=== PATIENT | female | born 1990 | race Caucasian/White ===

== ENCOUNTER 2022-11-12 10:13 | Outpatient (REF) | payer OTHER, SELFPAY ==
--- NOTE | ~2022-11-12 | XR_ITS ---
EXAMINATION: XR LUMBOSACRAL SPINE CLINICAL INFORMATION: Reason for Exam M54.50 - Low back pain, unspecified COMPARISON: None TECHNIQUE: 3 views of the lumbar spine FINDINGS: 5 nonrib-bearing lumbar-type vertebral bodies. Vertebral body heights are maintained. Levoconvex curvature of the lumbar spine. Disc space heights are maintained. Paravertebral soft tissues are unremarkable. XR/XR lumbar spine 2-3V IMPRESSION: * No significant degenerative disc disease. * Levoconvex curvature of the lumbar spine.
== END 2022-11-12 10:14 | disposition home or self-care (01) ==
LOC: HO.XRAY 10:13
PROVIDERS: PCP Nurse Practitioner Family; Visit Provider Nurse Practitioner Family
DX: M54.50 Low back pain, unspecified (principal)
CPT/HCPCS: 72100

== ENCOUNTER 2022-11-19 10:10 | Outpatient (REF) | payer OTHER, SELFPAY ==
--- NOTE | ~2022-11-19 | US_ITS ---
EXAMINATION: US ABDOMEN COMPLETE CLINICAL INFORMATION: Splenomegaly, not elsewhere classified. COMPARISON: None available. TECHNIQUE: Real-time imaging of the abdominal viscera. FINDINGS: PANCREAS: Normal. ABDOMINAL AORTA: The proximal, mid, and distal segments are normal in caliber. INFERIOR VENA CAVA: Visualized portions are normal. LIVER: The liver is normal in size. The liver contour is normal. Parenchymal echogenicity is normal. No focal hepatic lesion. There is no intrahepatic biliary duct dilatation seen. GALLBLADDER: The gallbladder is decompressed/contracted as the patient ate breakfast prior to the exam. At least one mobile gallstone is present measuring 1 cm in diameter. No evidence of gallbladder wall thickening or pericholecystic fluid. COMMON BILE DUCT: Normal in caliber measuring 0.4 cm in diameter. RIGHT KIDNEY: No hydronephrosis. No renal calculi or focal parenchymal lesions. The kidney measures 10.2 cm in maximum dimension. LEFT KIDNEY: There is a lower pole 3 mm echogenic focus present consistent with a nonobstructing stone. No hydronephrosis or focal parenchymal lesions. The kidney measures 10.6 cm in maximum dimension. SPLEEN: The spleen is mildly enlarged measuring 13.4 cm in maximum dimension. FREE FLUID: None. US/US abdomen complete IMPRESSION: 1. Mild splenomegaly. 2. Cholelithiasis. 3. Nonobstructing 3 mm left lower pole renal calculus.
== END 2022-11-19 10:11 | disposition home or self-care (01) ==
LOC: HO.HMGCX 10:10
PROVIDERS: PCP Nurse Practitioner Family; Visit Provider Nurse Practitioner Family
DX: R16.1 Splenomegaly, not elsewhere classified (principal)
CPT/HCPCS: 76700

== ENCOUNTER 2023-01-28 09:00 | Outpatient (RCR) | payer OTHER, SELFPAY ==
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
== END 2023-01-28 10:31 | disposition home or self-care (01) ==
LOC: HO.PT 09:00
PROVIDERS: PCP Nurse Practitioner Family; Visit Provider Nurse Practitioner Family
DX: S16.1XXD Strain of muscle, fascia and tendon at neck level, subsequent encounter (principal)
CPT/HCPCS: 97012; 97035; 97110; 97140; 97162; 97530

== ENCOUNTER 2023-01-31 14:35 | Outpatient (REF) | payer OTHER, SELFPAY ==
[2023-01-31 14:48] LABS: MANUAL DIFF FLAG NO
[2023-01-31 15:30] LABS: Basophils Percent Auto 0.3 % (0-2); Eosinophils Absolute Auto 0.2 X10*3/uL (0.0-0.4); Eosinophils Percent Auto 2.3 % (0-4); Hematocrit 39.2 % (37.0-47.0); Hemoglobin 13.3 g/dl (12.0-16.0); Imm Gran Abs Auto 0.04 X10*3/uL (0.00-0.03); Imm Gran Pct Auto 0.4 % (0.0-0.4); Lymphocytes Absolute Auto 1.9 X10*3/uL (1.2-4.9); Lymphocytes Percent Auto 20.3 % (20-40); Mean Corpuscular HGB Conc 33.9 g/dl (31.0-35.0); Mean Corpuscular Hemoglobin 29.2 pg (27.0-33.0); Mean Corpuscular Volume 86.2 fL (80.0-98.0); Monocytes Absolute Auto 0.6 X10*3/uL (0.1-1.2); Monocytes Percent Auto 6.3 % (2-11); Neutrophils Absolute Auto 6.5 x10*3/uL (2.0-8.3); Neutrophils Percent Auto 70.4 % (45-73); Platelet Count 358 X10*3/uL (160-400); Red Blood Count 4.55 X10*6/uL (4.20-5.50); Red Cell Distribution Width 12.5 % (11.0-16.0); White Blood Count 9.2 X10*3/uL (4.8-10.8)
[2023-01-31 16:04] LABS: Alanine Aminotransferase 25 U/L (0-31); Albumin Level 4.6 g/dL (3.5-5.0); Alkaline Phosphatase 72 U/L (39-117); Anion Gap 15 (12-20); Aspartate Amino Transferase 19 U/L (5-31); Blood Urea Nitrogen 8 mg/dL (9-16); Calcium 9.5 mg/dL (8.4-10.2); Carbon Dioxide 26 mmol/L (22-29); Chloride 105 mmol/L (96-108); Estimated Glomerular Filt Rate > 60; Glucose Random 100 mg/dL (60-115); Sodium 142 mmol/L (135-145); Total Protein 7.4 g/dL (6.5-8.0)
== END 2023-01-31 14:36 | disposition home or self-care (01) ==
LOC: HO.LAB 14:35
PROVIDERS: Visit Provider Nurse Practitioner Family
DX: R16.1 Splenomegaly, not elsewhere classified (principal); M54.2 Cervicalgia; Z13.0 Encounter for screening for diseases of the blood and blood-forming organs and certain disorders involving the immune mechanism
CPT/HCPCS: 36415; 80053; 85025

== ENCOUNTER 2023-04-11 08:02 | Outpatient (AMB) | payer OTHER, SELFPAY ==
[2023-04-11 08:04] VITALS: BP 124/76; PULSE 74; O2SAT 98; BMI 25.1
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
== END 2023-04-11 08:49 | disposition home or self-care (01) ==
PROVIDERS: PCP Nurse Practitioner Family; Visit Provider Nurse Practitioner Family
DX: M54.2 Cervicalgia (principal); M47.812 Spondylosis without myelopathy or radiculopathy, cervical region
CPT/HCPCS: 99213

== ENCOUNTER 2023-05-20 09:16 | Outpatient (AMB) | payer OTHER, SELFPAY ==
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
== END 2023-05-20 09:48 | disposition home or self-care (01) ==
PROVIDERS: PCP Nurse Practitioner Family; Referring Provider Nurse Practitioner Family; Visit Provider Physician Assistant
DX: M54.2 Cervicalgia (principal)
CPT/HCPCS: 99204

== ENCOUNTER → 2023-05-20 09:16 | Outpatient (BNVA) | payer OTHER, SELFPAY | PROVIDERS: PCP Nurse Practitioner Family; Visit Provider Physician Assistant ==

== ENCOUNTER 2023-09-03 10:22 | Emergency (ER) | payer OTHER, SELFPAY ==
[2023-09-03 10:52] VITALS: BP 100/70; PULSE 61; RESP 18; TEMP 36.3; O2SAT 100; BMI 25.1
--- NOTE | 2023-09-03 11:16 | ED.EXTPRO ---
HPI - Extremity Problem General Chief complaint: Extremity Injury, Upper Stated complaint: r hand inj fell Time Seen by Provider: 09/03/23 11:30 Source: patient Mode of arrival: ambulatory Limitations: no limitations History of Present Illness HPI Narrative: Patient is a 33 year old assigned female at with no reported medical history presenting to the emergency department today with right hand pain. Patient states that 2 days ago she tripped and fell on stairs and injured her right hand against a wall. Patient denies any head strike or loss of consciousness. Patient denies any dizziness, lightheadedness, abdominal pain, nausea, vomiting, fever, chills, blurry vision, double vision, loss of vision, chest pain, difficulty breathing, shortness of breath, back pain, night sweats, pain with urination, increased urinary frequency, increased urinary urgency, blood in her urine or stool, syncope or a near syncopal episode, bowel incontinence, bladder incontinence, bowel retention, bladder retention, or any other complaints at this time. MD Complaint: extremity pain Onset (ago): day(s) (2) Pain Consistency: constant Location: right and upper extremity Severity scale (1-10): 3 Quality: aching and dull Radiation: none Relieving factors: nothing Exacerbating factors: palpation Associated symptoms: denies other symptoms Related Data Home Medications Medication Instructions Recorded Confirmed clonazepam 0.5 mg tablet 0.5 mg PO DAILY PRN 11/11/22 gabapentin 100 mg capsule 0 mg PO 11/11/22 gabapentin 300 mg capsule 0 mg PO 11/11/22 naloxone 4 mg/actuation nasal spray 1 spray intranasal 11/11/22 naltrexone microspheres 380 mg mg IM 11/11/22 intramuscular suspension,extended release (Vivitrol) ondansetron 4 mg disintegrating 4 mg PO Q8H PRN nausea/vomiting 11/11/22 tablet sertraline 100 mg tablet 100 mg PO BID 11/11/22 trazodone 50 mg tablet 50 mg PO BEDTIME 11/11/22 Previous Rx's Medication Instructions Recorded ibuprofen 600 mg tablet 600 mg PO Q8H PRN pain #30 tabs 11/11/22 omeprazole 20 mg capsule,delayed 20 mg PO DAILY #30 caps 11/12/22 release clonazepam 1 mg tablet 1 mg PO DAILY #1 tab 01/31/23 cyclobenzaprine 5 mg tablet 10 mg (2 x 5 mg) PO BEDTIME PRN 10/16/23 for muscle spasm #20 tabs Allergies Allergy/AdvReac Type Severity Reaction Status Date / Time No Known Allergies Allergy Verified 09/03/23 10:52 Review of Systems Constitutional: Constitutional: Reports no additional constitutional complaints, Denies chills, Denies fever(s) and Denies night sweats Eyes: Eyes: Reports no additional eye complaints, Denies blurry vision, Denies change in vision, Denies diplopia, Denies eye discharge, Denies loss of vision and Denies eye pain ENT: Denies dizziness Cardiovascular: Cardiovascular: Reports no additional cardiovascular complaints, Denies chest pain, Denies lightheadedness, Denies Loss of Consciousness and Denies dyspnea Respiratory: Respiratory: Reports no additional respiratory complaints and Denies dyspnea Gastrointestinal: Gastrointestinal: Reports no additional gastrointestinal complaints, Denies abdominal pain, Denies melena, Denies hematochezia, Denies change in bowel habits and Denies change in stool character Genitourinary: Genitourinary: Denies hematuria, Denies urinary frequency, Denies dysuria, Denies urinary incontinence, Denies urinary hesitancy and Denies urinary urgency Musculoskeletal: Musculoskeletal: Reports no additional musculoskeletal complaints, Denies numbness and Denies tingling Comments: right hand pain Neurologic: Denies dizziness, Denies loss of vision, Denies numbness and Denies tingling Psychiatric: Psychiatric: Reports no additional psychiatric complaints Endocrine: Endocrine: Reports no additional endocrine complaints Hematologic/Lymphatic: Hematologic/Lymphatic: Reports no additional hematologic/lymphatic complaints Allergic/Immunologic: Allergic/Immunologic: Reports no additional allergic/immunologic complaints PMFSH Past Medical History Attestation statement: The following information was validated with the patient. Source: old records reviewed and nursing notes reviewed Onset Date is defined in the Problem List Problems that require an onset date and time if occurred within 24 hrs of arrival to the ED Aortic Dissection and Rupture; Neurologic impairment; Cardiopulmonary Arrest; Endotracheal Intubation; Insertion or Replacement of Mechanical Circulatory Assist Device Medical History Cervical pain (neck) Cervical muscle strain Lumbar back pain Splenomegaly Family History Family History Mother No problems noted. Father No problems noted. Sister No problems noted. Daughter No problems noted. Daughter No problems noted. Daughter No problems noted. Social History Social History Housing: House Patient Tobacco Use Status: Never used Tobacco e-Cigarette/Vaping Use: Currently Using Second Hand Smoke Exposure: No Advance Directives: No Advance Directives Information Provided: Yes service: No Current occupational status: employed Cognitive needs: No Hearing needs: No Vision needs: Yes Physical Exam Vital Signs: Vital Signs: Last Vital Signs Temp 97.3 F 09/03/23 10:52 Pulse 61 09/03/23 10:52 Resp 18 09/03/23 10:52 BP 100/70 09/03/23 10:52 Pulse Ox 100 09/03/23 10:52 O2 Del Method Room Air 09/03/23 10:52 BMI result Body Mass Index 25.1 Const: General: cooperative, no acute distress, alert and awake Nutritional Appearance: well nourished Orientation/consciousness: patient oriented x3 Limitations: no limitations HEENT: Head: Yes normal to inspection and Yes atraumatic Ears: hearing grossly normal bilaterally and external ears normal General nose exam: Normal external nose present, no nasal discharge noted and no epistaxis Face and sinus: Yes normal facial exam, No abrasion and No laceration Mouth: Normal oral and palatal mucosa present, no drooling and no muffled voice Eyes: General: appearance normal, both eyes and all related structures Periorbital: periorbital findings normal Eyelids: Yes eyelids normal Conjunctivae: conjunctivae normal Pupils: Equal, round and reactive pupils present EOM: EOMs intact bilaterally Neck: Neck: Yes normal visual inspection, Yes full ROM and Yes no lymphadenopathy Chest: Chest palpation & inspection: normal inspection of the chest Resp: Effort & Inspection: normal respiratory effort and able to speak in complete sentences GI: Inspection: Yes normal to inspection Neuro: General: patient oriented x3 and moves all extremities Cranial nerves: Yes Equal, round and reactive pupils present Cognition (Neuro): normal cognition Motor exam (neuro): 5/5 motor strength present throughout Sensory Exam: Normal double simultaneous stimulation for sensation Coordination: [id number] test normal Extrem: General: Yes normal to inspection, Yes full ROM and Yes capillary refill normal Psych: Appearance: grossly normal Mental Status: mental status grossly normal Affect: normal affect Attitude: cooperative Thought process: Normal thought process present Thought content: Normal thought content present Insight: Good insight present (Psych) Course Course Course Narrative: This is a rapid medical exam. Deferred additional HPI, ROS, PE to primary provider. 33 yo female here with right hand pain/swelling after fall down one step last night. No head strike or LOC. Will obtain x-rays. VSS Medical Decision Making Medical Decision Making MDM Narrative: Patient is a 33 year old assigned female at with no reported medical history presenting to the emergency department today with right hand pain. Patient's physical exam was unremarkable. Patient's right hand x-ray showed a non displaced transverse fracture with mild volar angulation of the mid fifth metacarpal. I explained my physical exam findings as well as all test results to the patient. I answered all questions asked by the patient. Patient's right hand was placed in an ulnar gutter splint, without incident. Patient's PMS was intact prior to and after splint placement. Patient's right upper extremity was placed in a sling. Patient's PMS was intact prior to and after sling placement. I stressed the importance of the patient taking her medication as prescribed. I stressed the importance of the patient following up with her primary care provider. I stressed the importance of the patient returning to the emergency department immediately if her symptoms were to worsen or if she were to develop any dizziness, shortness of breath, difficulty breathing, chest pain, blurry vision, loss of vision, nausea, vomiting, abdominal pain, fever, chills, back pain, or any other complaints. Patient verbalized agreement and understanding with this treatment plan and discharge. Differential Diagnosis Differential Diagnoses: The differential diagnosis associated with the presentation includes Hand fracture 5th metacarapal fracture Admission/Observation Consideration of admission/observation: Escalation of care including admission/observation considered Patient would have been admitted to the hospital had her work up had any findings where hospital admission was appropriate and her clinical presentation warranted hospital admission. Independent Interpretation I performed an independent interpretation of an: Plain X-Ray Interpretation: My interpretation is in agreement with the radiologist's impression of this imaging study. EXAMINATION: XR HAND, RIGHT CLINICAL INFORMATION: Fall and landed on right hand COMPARISON: None available. TECHNIQUE: PA, lateral, and oblique views of the right hand. FINDINGS: There is a nondisplaced transverse fracture mid diaphysis fifth metacarpal. There is minimal volar angulation. No additional fracture seen. There is mild soft tissue swelling. XR/XR hand RT 2V IMPRESSION: Nondisplaced transverse fracture with mild volar angulation mid fifth metacarpal. Mild soft tissue swelling. Dictated By: Karson Chavez MD Signed By: Electronically signed by Karson Chavez MD 09/03/23 1031 Radiology Impression Discussion of test interpretation with radiology: I have reviewed the radiologist's reading. Procedures Orthopedic Splinting/Casting Injury #1: Side: right Upper Extremity Injury Location: hand Upper Extremity Immobilizer: sling/shoulder immobilizer and ulnar gutter Discharge Plan Discharge Clinical Impression: Fracture of hand Patient Disposition: Home, Self-Care Instructions: Hand Fracture (ED) Additional Instructions: Follow up with your primary care provider and an orthopedic provider. Return to the emergency department immediately if your symptoms worsen or if you develop any dizziness, shortness of breath, difficulty breathing, chest pain, blurry vision, loss of vision, nausea, vomiting, abdominal pain, fever, chills, back pain, or any other complaints. Prescriptions: No Action omeprazole 20 mg capsule,delayed release(DR/EC) 20 mg PO DAILY Qty: 30 3RF cyclobenzaprine 5 mg tablet 10 mg PO BEDTIME PRN (Reason: for muscle spasm) Qty: 20 0RF ondansetron 4 mg tablet,disintegrating 4 mg PO Q8H PRN (Reason: nausea/vomiting) gabapentin 100 mg capsule 0 mg PO gabapentin 300 mg capsule 0 mg PO sertraline 100 mg tablet 100 mg PO BID clonazepam 0.5 mg tablet 0.5 mg PO DAILY PRN trazodone 50 mg tablet 50 mg PO BEDTIME Vivitrol 380 mg suspension,extended rel recon IM naloxone 4 mg/actuation spray,non-aerosol 1 spray intranasal ibuprofen 600 mg tablet 600 mg PO Q8H PRN (Reason: pain) Qty: 30 0RF clonazepam 1 mg tablet 1 mg PO DAILY Qty: 1 0RF Rx Instructions: Please take 30mins prior to MRI procedure Referrals: [facility] [Provider Group] (Call to establish and follow up with an orthopedic provider. ) Aileen Go FNP [Primary Care Provider] - Stand Alone Forms: Work/School Release Interventions: ED Discharge Assessment Last Done: 09/03/23 12:28 Discharge Date/Time: 09/03/23 12:30 Print Language: Greenlandic
== END 2023-09-03 12:30 | disposition home or self-care (01) ==
PROVIDERS: Emergency Provider Student in an Organized Health Care Education/Training Program; PCP Nurse Practitioner Family
DX: S62.396A Other fracture of fifth metacarpal bone, right hand, initial encounter for closed fracture (principal); W01.198A Fall on same level from slipping, tripping and stumbling with subsequent striking against other object, initial encounter; Y93.9 Activity, unspecified; Y92.9 Unspecified place or not applicable; Y99.9 Unspecified external cause status
CPT/HCPCS: 29125; 73120; 99283

== ENCOUNTER 2023-09-14 10:27 | Outpatient (REF) | payer OTHER, SELFPAY ==
--- NOTE | ~2023-09-14 | XR_ITS ---
EXAMINATION: XR HAND, RIGHT CLINICAL INFORMATION: Pain in right hand COMPARISON: None available. TECHNIQUE: PA, lateral, and oblique views of the right hand. FINDINGS: There is a nondisplaced fracture of the midshaft of the fifth metacarpal. The remainder of the bones are intact. Joint spaces are within normal limits. There is slight lateral bowing of the fifth metacarpal at the fracture site. No extension to the articular surfaces. XR/XR hand RT min 3V IMPRESSION: Nondisplaced fracture of the midshaft of the fifth metacarpal.
== END 2023-09-14 10:28 | disposition home or self-care (01) ==
LOC: HO.HOSX 10:27
PROVIDERS: Visit Provider Physician Assistant
DX: S62.336A Displaced fracture of neck of fifth metacarpal bone, right hand, initial encounter for closed fracture (principal)
CPT/HCPCS: 26600; 73130; 99202

== ENCOUNTER 2023-09-14 14:34 | Outpatient (AMB) | payer OTHER, SELFPAY ==
--- NOTE | 2023-09-14 14:43 | A.OFFVIS_ITS ---
Intake Vital Signs 09/14/23 14:48 Height 5 ft 7 in Weight 160 lb BMI 25.1 Intake Visit Reasons: FC- Fracture of RT hand Intake Note: Dominique anthony 33 year old right hand dominant female presents today for an ER follow up of right hand fx, DOI 09/01/22. Patient reports that she was holding her daughter when she tripped over a toy causing her to fall down the stairs. No improvement in her pain or swelling therefore presented to [facility] ED a couple of days later, xrays were taken and placed in a splint. Currently her pain level is 7 out of 10 however will fluctuate in intensity. She describes her pain as a burning sensation. Denies numbness and tingling. Finds very little to no relief with Tylenol or ibuprofen. Allergies No Known Allergies Allergy (Verified 09/14/23 14:53) Medication List - Last Reconciled 09/14/23 by URSZULA Og-David clonazepam 0.5 mg PO DAILY PRN clonazepam 1 mg PO DAILY cyclobenzaprine 10 mg (2 x 5 mg) PO BEDTIME PRN gabapentin 0 mg PO gabapentin 0 mg PO ibuprofen 600 mg PO Q8H PRN naloxone 4 mg/actuation 1 spray intranasal naltrexone microspheres ER (Vivitrol) mg IM omeprazole 20 mg PO DAILY ondansetron 4 mg PO Q8H PRN sertraline 100 mg PO BID trazodone 50 mg PO BEDTIME HPI FC- Fracture of RT hand HPI Details 33-year-old right hand dominant female wally forman presents to the office today for an ER follow-up of right-hand injury s/p holding her daughter when she tripped over a toy and sustained a fall down the stairs, 09/01/23. She was seen at ED about 2 days later for her pain and swelling where x-rays were performed and she was placed in a splint. She currently states she has a burning pain in her rates the pain as 7 on the scale of 0-10. She denies any numbness or tingling. She finds minimal relief with Tylenol or ibuprofen. 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 [facility] Medical History Cervical pain (neck) Cervical muscle strain Lumbar back pain Splenomegaly Family History Mother No problems noted. Father No problems noted. Sister No problems noted. Daughter No problems noted. Daughter No problems noted. Daughter No problems noted. 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 She has bruising and swelling over the 5th metacarpal with some tenderness at the fracture site. No scissoring or crossing of digits. NVI. Office Procedures Casting/Splints 30235-Zaci/Wrist Cast Application Procedure code (CPT) selection complete Fracture Care Fracture Billing Code: Fracture Billing Code Results Reviewed Results Reviewed: Xrays were obtained in the office today and personally reviewed by me of the right hand Nondisplaced transverse fracture with mild volar angulation mid fifth metacarpal. Assessment & Plan Assessment & Plan (1) Displaced fracture of neck of right fifth metacarpal bone: Code(s): S62.336A - Displaced fracture of neck of fifth metacarpal bone, right hand, initial encounter for closed fracture Qualifiers: Encounter type: initial encounter Fracture type: closed Qualified Code(s): S62.336A - Displaced fracture of neck of fifth metacarpal bone, right hand, initial encounter for closed fracture Plan X-rays were reviewed with Dr. Nunez in the office today. She was placed in a short arm cast for immobilization for 3 weeks to hold the fracture in place. If this remains stable for the next 3 weeks, she will be transitioned to a Velcro wrist splint. She will avoid any type of lifting, pushing, pulling or carrying greater than a cellphone. I would like to see her back in 3 weeks, sooner if needed. Orders: Orders XR hand RT min 3V Today M79.641 - Pain in right hand Patient Instructions: Scribed for Susan Santa PA-C, by Robert Emerson medical receptionist medical assistant, on 09/14/2023 at 2:30 PM CARTER. Moira, Susan Santa PA-C, have personally reviewed and agree with the information entered by the scribe. Coding Level of Care Code New Pt Level 3 (91778) Diagnoses Closed displaced fracture of neck of fifth metacarpal bone of right hand, initial encounter S62.336A Encounter type: initial encounter Fracture type: closed CPT Codes Casting - CPT: 24547-Tpdw/Wrist Cast Application ([id number]) Fracture Care - Fracture Billing Code: Fracture Billing Code ([id number])
[2023-09-14 14:48] VITALS: BMI 25.1
== END 2023-09-14 15:42 | disposition home or self-care (01) ==
PROVIDERS: PCP Nurse Practitioner Family; Visit Provider Physician Assistant
DX: S62.336A Displaced fracture of neck of fifth metacarpal bone, right hand, initial encounter for closed fracture (principal); W01.0XXA Fall on same level from slipping, tripping and stumbling without subsequent striking against object, initial encounter
CPT/HCPCS: 26600; 99203

== ENCOUNTER 2023-10-03 09:08 | Outpatient (REF) | payer OTHER, SELFPAY ==
--- NOTE | ~2023-10-03 | XR_ITS ---
EXAMINATION: XR HAND, RIGHT CLINICAL INFORMATION: Pain. COMPARISON: Prior radiographs, most recently 09/14/2023. TECHNIQUE: PA, lateral, and oblique views of the right hand. FINDINGS: A mildly displaced transverse fracture is seen of the mid right fifth metacarpal shaft, in stable alignment. There is good periosteal callus formation. No dislocation is seen. There is no focal soft tissue swelling, gas or foreign body. XR/XR hand RT min 3V IMPRESSION: There is stable alignment of a mildly displaced fracture of the mid right fifth metacarpal shaft. There is good periosteal callus formation.
== END 2023-10-03 09:09 | disposition home or self-care (01) ==
LOC: HO.HOSX 09:08
PROVIDERS: Visit Provider Physician Assistant
DX: S62.336D Displaced fracture of neck of fifth metacarpal bone, right hand, subsequent encounter for fracture with routine healing (principal); M79.641 Pain in right hand; X58.XXXD Exposure to other specified factors, subsequent encounter
CPT/HCPCS: 29085; 73130; 99212

== ENCOUNTER 2023-10-03 15:17 | Outpatient (AMB) | payer OTHER, SELFPAY ==
[2023-10-03 15:39] VITALS: BMI 25.1
--- NOTE | 2023-10-03 15:39 | A.OFFVIS_ITS ---
Intake Vital Signs 10/03/23 15:39 Height 5 ft 7 in Weight 160 lb BMI 25.1 Intake Visit Reasons: ov- Fracture of RT hand Intake Note: Dominique 33 yr ld female presents today for her follow up visit for her fracture of neck of fifth metacarpal bone of right hand from DOI 09/01/22. Xrays updated in office. States she cont's to have pain in her 5th MC dorsal aspect of hand. States she is hesitant to be out of cast due to caring for young child. Allergies No Known Allergies Allergy (Verified 10/03/23 15:42) HPI ov- Fracture of RT hand HPI Details 33-year-old female who returns to the [facility] today for a follow-up of right-hand fracture, 09/01/23. She continues to have pain in her dorsal aspect of her hand along the 5th metacarpal. She reports she is hesitant to be out of the cast due to caring for her young child. [facility] Medical History Cervical pain (neck) Cervical muscle strain Lumbar back pain Splenomegaly Family History Mother No problems noted. Father No problems noted. Sister No problems noted. Daughter No problems noted. Daughter No problems noted. Daughter No problems noted. 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 Resolved bruising and swelling over the 5th metacarpal with some tenderness at the fracture site. No scissoring or crossing of digits. NVI. Office Procedures Casting/Splints 45871-Pode/Wrist Cast Application Procedure code (CPT) selection complete Assessment & Plan Assessment & Plan (1) Displaced fracture of neck of right fifth metacarpal bone: Code(s): S62.336A - Displaced fracture of neck of fifth metacarpal bone, right hand, initial encounter for closed fracture Qualifiers: Encounter type: initial encounter Fracture type: closed Qualified Code(s): S62.336A - Displaced fracture of neck of fifth metacarpal bone, right hand, initial encounter for closed fracture Plan She was placed in another short arm cast in the position of safety. She will avoid any type of lifting, pushing, pulling or carrying greater than a cellphone. She will return to see me back in 3-4 weeks for cast off and x-rays, sooner if needed. Orders: Orders XR hand RT min 3V Today M79.641 - Pain in right hand Patient Instructions: Scribed for Susan Santa PA-C, by Robert Emerson medical sales specialist, on 10/03/2023 at 3:30 PM EST. I, Susan Santa PA-C, have personally reviewed and agree with the information entered by the scribe. Coding Level of Care Code Global (23324) Diagnoses Closed displaced fracture of neck of fifth metacarpal bone of right hand, initial encounter S62.336A Encounter type: initial encounter Fracture type: closed CPT Codes Casting - CPT: 84456-Wfrs/Wrist Cast Application ([id number])
== END 2023-10-03 16:07 | disposition home or self-care (01) ==
PROVIDERS: PCP Nurse Practitioner Family; Visit Provider Physician Assistant
DX: S62.336A Displaced fracture of neck of fifth metacarpal bone, right hand, initial encounter for closed fracture (principal)
CPT/HCPCS: 29085; 99024

== ENCOUNTER 2023-10-31 15:31 | Outpatient (AMB) | payer OTHER, SELFPAY ==
--- NOTE | 2023-10-31 15:41 | MHC.OFFVIS ---
Intake Intake Visit Reasons: OV-rt f5h mc fx-cast off w xrays Intake Note: Dominique 33 year old female presents today for a follow up of right hand fracture of neck of fifth metacarpal bone from [facility] 09/01/22. Cast off and xrays updated in office. Patient reports that she continues to have soreness however states improvement in pain since her last visit. Allergies No Known Allergies Allergy (Verified 10/31/23 16:01) HPI OV-rt f5h mc fx-cast off w xrays HPI Details 33-year-old female who returns to the office today for a follow-up of right 5th metacarpal fracture, 09/01/22. She continues to have soreness in her finger however she does have improvement since her last visit. She has no other concerns today. [facility] Medical History Cervical pain (neck) Cervical muscle strain Lumbar back pain Splenomegaly Family History Mother No problems noted. Father No problems noted. Sister No problems noted. Daughter No problems noted. Daughter No problems noted. Daughter No problems noted. 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 Trace tenderness at the fracture site. No scissoring or crossing of digits. NVI. Results Reviewed Results Reviewed: Xrays were obtained in the office today and personally reviewed by me of the right hand significant for healing fracture through the fifth metacarpal with adequate callus formation. Assessment & Plan Assessment & Plan (1) Displaced fracture of neck of right fifth metacarpal bone: Code(s): S62.336A - Displaced fracture of neck of fifth metacarpal bone, right hand, initial encounter for closed fracture Qualifiers: Encounter type: subsequent encounter Fracture type: closed Fracture healing: with routine healing Qualified Code(s): S62.336D - Displaced fracture of neck of fifth metacarpal bone, right hand, subsequent encounter for fracture with routine healing Plan She was transitioned to a Velcro wrist splint which she will wear with activities. She can remove for hygiene and ADLs which do not require heavy lifting. She will work on hand and wrist ROM and see me back in 3-4 weeks with new x-rays, sooner if needed. Orders: Orders XR hand RT min 3V Today M79.641 - Pain in right hand Patient Instructions: Scribed for Susan Santa PA-C, by Robert Emerson medical charge entry specialist, on 10/31/2023 at 3:30 PM EST. I, Susan Santa PA-C, have personally reviewed and agree with the information entered by the scribe. Coding Level of Care Code Global (39225) Diagnoses Closed displaced fracture of neck of fifth metacarpal bone of right hand with routine healing, subsequent encounter S62.336D Encounter type: subsequent encounter Fracture type: closed Fracture healing: with routine healing
== END 2023-10-31 16:02 | disposition home or self-care (01) ==
PROVIDERS: PCP Nurse Practitioner Family; Visit Provider Physician Assistant
DX: S62.336D Displaced fracture of neck of fifth metacarpal bone, right hand, subsequent encounter for fracture with routine healing (principal)
CPT/HCPCS: 99024

== ENCOUNTER 2023-10-31 15:57 | Outpatient (REF) | payer OTHER, SELFPAY ==
--- NOTE | ~2023-10-31 | XR_ITS ---
EXAMINATION: XR HAND, RIGHT CLINICAL INFORMATION: Right hand pain. COMPARISON: Right hand radiographs 10/03/2023, 09/14/2023, 09/03/2023. TECHNIQUE: PA, lateral, and oblique views of the right hand. FINDINGS: Again seen is the fracture of the mid 5th metacarpal with some mild lateral angulation of the distal fracture fragment. Osseous union has not yet occurred but there is slight increase in periosteal reaction when compared to the most recent prior study. The bones and soft tissues are otherwise unremarkable. No other fracture. Alignment is anatomic. Joint spaces are maintained. No erosions or soft tissue calcifications. XR/XR hand RT min 3V IMPRESSION: Healing 5th metacarpal fracture.
== END 2023-10-31 15:58 | disposition home or self-care (01) ==
LOC: HO.HOSX 15:57
PROVIDERS: Visit Provider Physician Assistant
DX: S62.336D Displaced fracture of neck of fifth metacarpal bone, right hand, subsequent encounter for fracture with routine healing (principal)
CPT/HCPCS: 73130; 99212

== ENCOUNTER 2023-11-28 11:07 | Outpatient (REF) | payer OTHER, SELFPAY ==
--- NOTE | ~2023-11-28 | XR_ITS ---
EXAMINATION: XR HAND, RIGHT CLINICAL INFORMATION: Pain COMPARISON: 10/02/2023 TECHNIQUE: PA, lateral, and oblique views of the right hand. FINDINGS: Angulated mildly comminuted mid fifth metacarpal shaft fracture without significant change from most recent examination. There is mild callus formation but there is persistent nonunion. XR/XR hand RT min 3V IMPRESSION: Healing fifth metacarpal fracture
== END 2023-11-28 11:08 | disposition home or self-care (01) ==
LOC: HO.HOSX 11:07
PROVIDERS: Visit Provider Physician Assistant
DX: M79.641 Pain in right hand (principal); S62.336D Displaced fracture of neck of fifth metacarpal bone, right hand, subsequent encounter for fracture with routine healing; X58.XXXD Exposure to other specified factors, subsequent encounter
CPT/HCPCS: 73130; 99212

== ENCOUNTER 2023-11-28 14:53 | Outpatient (AMB) | payer OTHER, SELFPAY ==
--- NOTE | 2023-11-28 15:04 | MHC.OFFVIS ---
Intake Vital Signs 11/28/23 15:09 Height 5 ft 7 in Weight 160 lb BMI 25.1 Intake Visit Reasons: OV-rt f5h mc fx-w xrays Intake Note: Dominique 33 year old female presents today for a follow up of right hand fracture of neck of fifth metacarpal bone from [facility] 09/01/22. Patient states she is a little sore but thinks that she is doing better. She has no concerns at this point. Allergies No Known Allergies Allergy (Verified 11/28/23 15:11) HPI OV-rt f5h mc fx-w xrays HPI Details 33-year-old female who returns to the office today for a follow-up of right 5th metacarpal fracture, 09/01/22. She has started increasing activity as tolerated and has no new concerns today. [facility] Medical History Cervical pain (neck) Cervical muscle strain Lumbar back pain Splenomegaly Family History Mother No problems noted. Father No problems noted. Sister No problems noted. Daughter No problems noted. Daughter No problems noted. Daughter No problems noted. 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 She has no pain, no trace tenderness at the fracture site. No scissoring or crossing of digits. NVI. Results Reviewed Results Reviewed: Xrays were obtained in the office today and personally reviewed by me of the right hand significant for healing fracture through the fifth metacarpal with adequate callus formation. Assessment & Plan Assessment & Plan (1) Displaced fracture of neck of right fifth metacarpal bone: Code(s): S62.336A - Displaced fracture of neck of fifth metacarpal bone, right hand, initial encounter for closed fracture Qualifiers: Encounter type: subsequent encounter Fracture healing: with routine healing Fracture type: closed Qualified Code(s): S62.336D - Displaced fracture of neck of fifth metacarpal bone, right hand, subsequent encounter for fracture with routine healing Plan She will increase activity as tolerated without restrictions and contact the office if she has any questions or concerns. Orders: Orders XR hand RT min 3V Today M79.641 - Pain in right hand Patient Instructions: Scribed for Susan Santa PA-C, by Robert Emerson medical receptionist medical assistant, on 11/28/2023 at 3:00 PM EST. ISusan PA-C, have personally reviewed and agree with the information entered by the scribe. Coding Level of Care Code Global (81687) Diagnoses Closed displaced fracture of neck of fifth metacarpal bone of right hand with routine healing, subsequent encounter S62.336D Encounter type: subsequent encounter Fracture healing: with routine healing Fracture type: closed
[2023-11-28 15:09] VITALS: BMI 25.1
== END 2023-11-28 15:39 | disposition home or self-care (01) ==
PROVIDERS: PCP Nurse Practitioner Family; Visit Provider Physician Assistant
DX: S62.336D Displaced fracture of neck of fifth metacarpal bone, right hand, subsequent encounter for fracture with routine healing (principal)
CPT/HCPCS: 99024

== ENCOUNTER 2024-02-20 12:56 | Emergency (ER) | payer OTHER, SELFPAY ==
[2024-02-20 13:07] VITALS: BP 134/78; PULSE 55; O2SAT 97
[2024-02-20 13:44] VITALS: BP 115/76; PULSE 52; RESP 18; TEMP 37.1; O2SAT 100
[2024-02-20 16:40] LABS: Basophils Percent Auto 0.4 % (0-2); Eosinophils Absolute Auto 0.1 X10*3/uL (0.0-0.4); Eosinophils Percent Auto 1.6 % (0-4); Hematocrit 37.9 % (37.0-47.0); Hemoglobin 13.6 g/dl (12.0-16.0); Imm Gran Abs Auto 0.01 X10*3/uL (0.00-0.03); Imm Gran Pct Auto 0.1 % (0.0-0.4); Lymphocytes Absolute Auto 2.2 X10*3/uL (1.2-4.9); Lymphocytes Percent Auto 31.3 % (20-40); MANUAL DIFF FLAG NO; Mean Corpuscular HGB Conc 35.9 g/dl (31.0-35.0); Mean Corpuscular Hemoglobin 30.6 pg (27.0-33.0); Mean Corpuscular Volume 85.2 fL (80.0-98.0); Mean Platelet Volume 8.9 fL (9.4-12.3); Monocytes Absolute Auto 0.5 X10*3/uL (0.1-1.2); Monocytes Percent Auto 7.2 % (2-11); Neutrophils Absolute Auto 4.2 x10*3/uL (2.0-8.3); Neutrophils Percent Auto 59.4 % (45-73); Platelet Count 318 X10*3/uL (160-400); Red Blood Count 4.45 X10*6/uL (4.20-5.50); Red Cell Distribution Width 12.4 % (11.0-16.0)
[2024-02-20 16:44] LABS: Appearance Urine Clear; Glucose Urine UA Negative (Negative); Leukocyte Esterase Urine Negative (Negative); Nitrite Urine Negative (Negative); Specific Gravity - Urine >= 1.030 (1.005-1.025); Urine Blood Negative (Negative); Urine Ketones Trace mg/dL (Negative); Urine Protein Trace mg/dL (Neg-Trace)
[2024-02-20 16:51] LABS: UPreg QC Valid YES; Urine Pregnancy NEGATIVE (NEGATIVE)
[2024-02-20 16:54] LABS: Color Urine Yellow
[2024-02-20 16:55] LABS: Alanine Aminotransferase 13 U/L (0-31); Albumin Level 4.8 g/dL (3.5-5.0); Alkaline Phosphatase 74 U/L (39-117); Anion Gap 16 (12-20); Aspartate Amino Transferase 23 U/L (5-31); Bilirubin Direct 0.2 mg/dL (0.0-0.5); Bilirubin Total 0.7 mg/dL (0.0-1.0); Blood Urea Nitrogen 10 mg/dL (9-16); Calcium 9.5 mg/dL (8.4-10.2); Carbon Dioxide 29 mmol/L (22-29); Chloride 103 mmol/L (96-108); Estimated Glomerular Filt Rate > 60; Glucose Fasting 93 mg/dL (60-99); Lipase 21 U/L (8-78); Potassium 3.7 mmol/L (3.3-5.1); Sodium 144 mmol/L (135-145); Total Protein 7.5 g/dL (6.5-8.0)
--- NOTE | 2024-02-20 18:26 | ED.GENADULT ---
HPI - General Adult General Chief complaint: Nausea/Vomiting/Diarrhea Stated complaint: LIGHTE HEADED,WEAK,VOMIT/DIARRHEA X 3M PER EMS Time Seen by Provider: 02/20/24 18:26 Source: patient Mode of arrival: ambulatory Limitations: no limitations History of Present Illness ED Provider: Gunjan Anaya PA-C HPI narrative: 33-year-old female with history of anemia, anxiety, depression, and PTSD presents for evaluation of presyncopal episode today while she was at work. Reports that she was sitting at her desk and started to feel lightheaded and see spots. Did not lose consciousness. Her coworker told her she looked pale and called an ambulance for her to come here. She reports that she has been having chronic nausea, vomiting, and diarrhea for the last 3-4 months, has not seen pcp or GI doctor about it. Denies blood in vomit or stool. Nausea is constant. Has been taking imodium almost daily for these months. Started her menstrual period yesterday. Denies chest pain, shortness of breath, palpitations. Denies recent illness, travel, or sick contacts. No new medications. MD complaint: Pre-syncope Onset (ago): hour(s) Severity: mild Relieving factors: none Exacerbating factors: none Associated symptoms: nausea/vomiting Treatments prior to arrival: other (zofran) Related Data Home Medications ?Medication ?Instructions ?Recorded ?Confirmed clonazepam 0.5 mg tablet 0.5 mg PO DAILY PRN 11/11/22 gabapentin 100 mg capsule 0 mg PO 11/11/22 gabapentin 300 mg capsule 0 mg PO 11/11/22 09/14/23 naloxone 4 mg/actuation nasal spray 1 spray intranasal 11/11/22 naltrexone microspheres 380 mg mg IM 11/11/22 09/14/23 intramuscular suspension,extended release (Vivitrol) ondansetron 4 mg disintegrating 4 mg PO Q8H PRN nausea/vomiting 11/11/22 tablet sertraline 100 mg tablet 100 mg PO BID 11/11/22 09/14/23 trazodone 50 mg tablet 50 mg PO BEDTIME 11/11/22 09/14/23 Previous Rx's ?Medication ?Instructions ?Recorded ibuprofen 600 mg tablet 600 mg PO Q8H PRN pain #30 tabs 11/11/22 omeprazole 20 mg capsule,delayed 20 mg PO DAILY #30 caps 11/12/22 release clonazepam 1 mg tablet 1 mg PO DAILY #1 tab 01/31/23 cyclobenzaprine 5 mg tablet 10 mg (2 x 5 mg) PO BEDTIME PRN 06/13/23 for muscle spasm #20 tabs Allergies Allergy/AdvReac Type Severity Reaction Status Date / Time No Known Allergies Allergy Verified 02/20/24 13:46 Review of Systems Constitutional: Constitutional: Reports no additional constitutional complaints, Denies chills, Denies fever(s) and Denies night sweats Eyes: Eyes: Reports no additional eye complaints, Denies blurry vision, Denies change in vision, Denies diplopia, Denies eye discharge, Denies loss of vision and Denies eye pain ENT: Denies dizziness Cardiovascular: Cardiovascular: Reports no additional cardiovascular complaints, Denies chest pain, Denies lightheadedness, Denies Loss of Consciousness and Denies dyspnea Respiratory: Respiratory: Reports no additional respiratory complaints and Denies dyspnea Gastrointestinal: Gastrointestinal: Reports no additional gastrointestinal complaints, Denies abdominal pain, Denies melena, Denies hematochezia, Denies change in bowel habits, Denies change in stool character, Reports diarrhea and Reports vomiting Genitourinary: Genitourinary: Denies hematuria, Denies urinary frequency, Denies dysuria, Denies urinary incontinence, Denies urinary hesitancy and Denies urinary urgency Musculoskeletal: Musculoskeletal: Reports no additional musculoskeletal complaints, Denies numbness and Denies tingling Neurologic: Denies dizziness, Denies loss of vision, Denies numbness and Denies tingling Comments: near syncope Psychiatric: Psychiatric: Reports no additional psychiatric complaints Endocrine: Endocrine: Reports no additional endocrine complaints Hematologic/Lymphatic: Hematologic/Lymphatic: Reports no additional hematologic/lymphatic complaints Allergic/Immunologic: Allergic/Immunologic: Reports no additional allergic/immunologic complaints [facility] Past Medical History Attestation statement: The following information was validated with the patient. Source: old records reviewed and nursing notes reviewed Medical History Cervical pain (neck) Cervical muscle strain Lumbar back pain Splenomegaly Family History Family History Mother No problems noted. Father No problems noted. Sister No problems noted. Daughter No problems noted. Daughter No problems noted. Daughter No problems noted. 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 Cognitive needs: No Hearing needs: No Vision needs: Yes Physical Exam ED Vital Signs: Vital Signs - 24 hr 02/20/24 13:44 02/20/24 20:11 02/20/24 20:13 Temperature 98.7 F 97.2 F 97.2 F Pulse Rate 52 65 65 Respiratory Rate 18 16 16 Blood Pressure 115/76 122/90 H 122/90 H Pulse Oximetry 100 97 97 Oxygen Delivery Method Room Air Room Air Room Air BMI result Body Mass Index 0.0 Const General: cooperative, no acute distress, alert and awake Nutritional Appearance: well nourished Orientation/consciousness: patient oriented x3 Limitations: no limitations HENMT Head: Yes normal to inspection and Yes atraumatic Ears: hearing grossly normal bilaterally and external ears normal General nose exam: Normal external nose present, no nasal discharge noted and no epistaxis Face and sinus: Yes normal facial exam, No abrasion and No laceration Mouth: Normal oral and palatal mucosa present, no drooling and no muffled voice Eyes General: appearance normal, both eyes and all related structures Periorbital: periorbital findings normal Eyelids: Yes eyelids normal Conjunctivae: conjunctivae normal Pupils: Equal, round and reactive pupils present EOM: EOMs intact bilaterally Neck Neck: Yes normal visual inspection, Yes full ROM and Yes no lymphadenopathy Chest Chest palpation & inspection: normal inspection of the chest Resp Effort & Inspection: normal respiratory effort and able to speak in complete sentences GI Inspection: Yes normal to inspection Neuro General: patient oriented x3 and moves all extremities Cranial nerves: Yes Equal, round and reactive pupils present Cognition (Neuro): normal cognition Motor exam (neuro): 5/5 motor strength present throughout Sensory Exam: Normal double simultaneous stimulation for sensation Coordination: ivbbid-[id number] test normal Extrem General: Yes normal to inspection, Yes full ROM and Yes capillary refill normal Psych Appearance: grossly normal Mental Status: mental status grossly normal Affect: normal affect Attitude: cooperative Thought process: Normal thought process present Thought content: Normal thought content present Insight: Good insight present (Psych) Medications Administered Discontinued Medications Generic Name Dose Route Start Last Admin Trade Name Chintan PRN Reason Stop Dose Admin Acetaminophen 975 mg 02/20/24 19:08 02/20/24 19:54 Acetaminophen 325 Mg Tablet PO 02/20/24 19:09 975 mg ONCE ONE Administration Sodium Chloride 1,000 mls @ 999 mls/hr 02/20/24 18:45 02/20/24 19:08 Ns IV 02/20/24 19:45 999 mls/hr .Q1H1M MANDA Administration Medical Decision Making Medical Decision Making [facility] Narrative: Patient is a 33 year old assigned female at with no reported medical history presenting to the emergency department today with nausea, vomiting, diarrhea, and a near syncopal episode today. Patient's physical exam was unremarkable. Patient's blood work was unremarkable. Patient's urine showed no acute process. I explained my physical exam findings as well as all test results to the patient. I answered all questions asked by the patient. I instructed the patient to stop taking the imodium as taking it regularly will cause her diarrhea to be worse. Patient received IV fluids which she stated helped her symptoms significantly. I stressed the importance of the patient taking her medication as prescribed. I stressed the importance of the patient following up with her primary care provider and a GI specialist. I stressed the importance of the patient returning to the emergency department immediately if her symptoms were to worsen or if she were to develop any dizziness, shortness of breath, difficulty breathing, chest pain, blurry vision, loss of vision, nausea, vomiting, abdominal pain, fever, chills, back pain, or any other complaints. Patient verbalized agreement and understanding with this treatment plan and discharge. Differential Diagnosis Differential Diagnoses: The differential diagnosis associated with the presentation includes Vomiting Diarrhea Near sycopal episode Admission/Observation Consideration of admission/observation: Escalation of care including admission/observation considered Patient would have been admitted to the hospital had her work up had any findings where hospital admission was appropriate and her clinical presentation warranted hospital admission. Lab Data [facility] Lab Attestation statement: I reviewed the patient's lab results. My interpretation of these results are in the [facility] Rationale portion of this note. 02/20/24 16:32 02/20/24 16:32 Labs: Lab Results 0602/20/24 02/20/24 Range/Units 16:32 16:34 19:37 WBC 7.0 (4.8-10.8) X10*3/uL RBC 4.45 (4.20-5.50) X10*6/uL Hgb 13.6 (12.0-16.0) g/dl Hct 37.9 (37.0-47.0) % MCV 85.2 (80.0-98.0) fL MCH 30.6 (27.0-33.0) pg MCHC 35.9 H (31.0-35.0) g/dl RDW 12.4 (11.0-16.0) % Plt Count 318 (160-400) X10*3/uL MPV 8.9 L (9.4-12.3) fL Immature Gran % (Auto) 0.1 (0.0-0.4) % Neut % (Auto) 59.4 (45-73) % Lymph % (Auto) 31.3 (20-40) % Anson % (Auto) 7.2 (2-11) % Eos % (Auto) 1.6 (0-4) % Baso % (Auto) 0.4 (0-2) % Lymph # (Auto) 2.2 (1.2-4.9) X10*3/uL Anson # (Auto) 0.5 (0.1-1.2) X10*3/uL Eos # (Auto) 0.1 (0.0-0.4) X10*3/uL Baso # (Auto) 0.0 (0.0-0.2) X10*3/uL Abs Immat Gran (auto) 0.01 (0.00-0.03) X10*3/uL Absolute Neuts (auto) 4.2 (2.0-8.3) x10*3/uL Absolute Nucleated RBC 0.000 (0.0-0.012) X10*3/uL Nucleated RBC % (auto) 0.0 (0.0-0.2) /100WBC Sodium 144 (135-145) mmol/L Potassium 3.7 (3.3-5.1) mmol/L Chloride 103 (96-108) mmol/L Carbon Dioxide 29 (22-29) mmol/L Anion Gap 16 (12-20) BUN 10 (9-16) mg/dL Creatinine 0.79 (0.5-1.4) mg/dL Estim Creat Clear Calc 101.0 Estimated GFR > 60 Fasting Glucose 93 (60-99) mg/dL Calcium 9.5 (8.4-10.2) mg/dL Magnesium 2.0 (1.6-2.6) mg/dL Total Bilirubin 0.7 (0.0-1.0) mg/dL Direct Bilirubin 0.2 (0.0-0.5) mg/dL AST 23 (5-31) U/L ALT 13 (0-31) U/L Alkaline Phosphatase 74 (39-117) U/L Total Protein 7.5 (6.5-8.0) g/dL Albumin 4.8 (3.5-5.0) g/dL Lipase 21 (8-78) U/L TSH 1.59 (0.32-4.0) uIU/mL Beta HCG, Quant < 2 mIU/mL Urine Color Yellow Urine Appearance Clear Urine pH 6.0 (5.0-9.0) Ur Specific [place] >= 1.030 H (1.005-1.025) Urine Protein Trace (Neg-Trace) mg/dL Urine Glucose (UA) Negative (Negative) mg/dL Urine Ketones Trace (Negative) mg/dL Urine Blood Negative (Negative) Urine Nitrite Negative (Negative) Ur Leukocyte Esterase Negative (Negative) Urine Test NEGATIVE (NEGATIVE) Influenza Type A (PCR) NEGATIVE (Negative) Influenza Type B (PCR) NEGATIVE (Negative) RSV RNA Qual (PCR) NEGATIVE (Negative) SARS-CoV-2 RNA (RT-PCR) NEGATIVE (Negative) Independent Historian Clinical information obtained from an independent historian. History obtained from or confirmed by: EMS (EMS provided additional history and confirmed the history provided by the patient.) Tests considered The following testing was considered but not selected: I considered a CT scan of the patient's head and abdomen/pelvis however, the patient's current clinical presentation did not warrant this. I discussed this with the patient who verbalized understanding and agreement. Discharge Plan Discharge Clinical Impression: Diarrhea, Vomiting, Episodic lightheadedness Patient Disposition: Home, Self-Care Instructions: Acute Nausea and Vomiting (ED), Acute Diarrhea (ED), Lightheadedness (ED) Additional Instructions: STOP Taking the immodium. Follow up with your primary care provider and a GI specialist. Return to the emergency department immediately if your symptoms worsen or if you develop any dizziness, shortness of breath, difficulty breathing, chest pain, blurry vision, loss of vision, nausea, vomiting, abdominal pain, fever, chills, back pain, or any other complaints. Prescriptions: No Action omeprazole 20 mg capsule,delayed release(DR/EC) 20 mg PO DAILY Qty: 30 3RF cyclobenzaprine 5 mg tablet 10 mg PO BEDTIME PRN (Reason: for muscle spasm) Qty: 20 0RF ondansetron 4 mg tablet,disintegrating 4 mg PO Q8H PRN (Reason: nausea/vomiting) gabapentin 100 mg capsule 0 mg PO gabapentin 300 mg capsule 0 mg PO sertraline 100 mg tablet 100 mg PO BID clonazepam 0.5 mg tablet 0.5 mg PO DAILY PRN trazodone 50 mg tablet 50 mg PO BEDTIME Vivitrol 380 mg suspension,extended rel recon IM naloxone 4 mg/actuation spray,non-aerosol 1 spray intranasal ibuprofen 600 mg tablet 600 mg PO Q8H PRN (Reason: pain) Qty: 30 0RF clonazepam 1 mg tablet 1 mg PO DAILY Qty: 1 0RF Rx Instructions: Please take 30mins prior to MRI procedure [place] [facility] [facility] [place] [Provider Group] (Call to establish and follow up with a GI specialist. ) [facility] [place] Family [place] [Provider Group] (Call to establish and follow up with a primary care provider. If you already have a primary care provider, please follow up with them.) [facility] [place] [facility] [Provider Group] [facility] [place] [facility] [Provider Group] Stand Alone Forms: Work/School Release Interventions: ED Discharge Assessment Last Done: 02/20/24 20:13 Discharge Date/Time: 02/20/24 20:15 Print Language: [place]
[2024-02-20] MEDS: 0.9 % Sodium Chloride 1,000 ML 999 ML IV (19:08)
[2024-02-20 19:26] LABS: HCG Quantitative < 2 mIU/mL; TSH reflex Free T4 1.59 uIU/mL (0.32-4.0)
[2024-02-20] MEDS: Acetaminophen 325 MG TABLET 975 MG PO (19:54)
--- NOTE | 2024-02-20 19:55 | PC.NURSE ---
Addendum entered by Jaelyn Rascon RN 02/20/24 20:03: Layne ROUSSEAU Original Note: pt medicated for 6/7-10 headache
[2024-02-20 20:11] VITALS: BP 122/90; PULSE 65; RESP 16; TEMP 36.2; O2SAT 97
--- NOTE | 2024-02-20 20:12 | PC.NURSE ---
patient a&ox3, pt requesting to discharge as she felt much better and the noise from the family in [facility] is too much for her to take, provider notified and pt to discharge
[2024-02-20 20:13] VITALS: BP 122/90; PULSE 65; RESP 16; TEMP 36.2; O2SAT 97
[2024-02-20 20:21] LABS: Influenza A PCR NEGATIVE (Negative); Influenza B PCR NEGATIVE (Negative); Resp Syncy Virus RNA Qual PCR NEGATIVE (Negative); SARS COV2 PCR INHOUSE NEGATIVE (Negative)
== END 2024-02-20 20:15 | disposition home or self-care (01) ==
PROVIDERS: Physician Assistant Medical; Emergency Provider Internal Medicine
DX: R11.2 Nausea with vomiting, unspecified (principal); R53.1 Weakness; R42 Dizziness and giddiness; R19.7 Diarrhea, unspecified; Z03.818 Encounter for observation for suspected exposure to other biological agents ruled out; Z79.899 Other long term (current) drug therapy
CPT/HCPCS: 0241U; 36415; 80048; 80076; 81003; 81025; 83690; 83735; 84443; 84702; 85025; 99283; 99284

== ENCOUNTER 2024-08-07 10:42 | Outpatient (AMB) | payer OTHER, SELFPAY ==
--- NOTE | 2024-08-07 10:49 | MHC.PC.OV ---
Vital Signs 08/07/24 11:08 Height 5 ft 7 in Weight 131 lb 2 oz BMI 20.5 BP 98/66 Blood Pressure Location Lt brachial Position Sitting Respiration 12 Pulse 72 Pulse Source Pulse Oximeter Pulse Oximetry (%) 98 Oxygen Delivery Method Room Air Intake Visit Reasons: COTTON BALER-diarrea/stomach issues Intake Note: New patient to establish care. Patient also complaining of diarrhea, vomiting and losing weight since last September but got her gall bladder removed back in apr. 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 Allergies No Known Allergies Allergy (Verified 08/07/24 11:17) Medication List - Last Reconciled 08/07/24 by Leticia Brady, [facility]- buspirone 5 mg PO BID clonazepam 1 mg PO DAILY etonogestrel (Nexplanon) subdermal gabapentin 0 mg PO omeprazole 20 mg PO DAILY sertraline 200 mg PO ONCE trazodone 50 mg PO BEDTIME Tobacco use date assessed: 08/07/24 Dental Screening Dental Screen Date: 08/07/24 Did you have a dental visit in the last 12 months?: Yes Did you have a dental problem in the last 6 months where you did not have access to dental care?: No Was dental information given to patient?: Patient has dentist HPI HPI Comments History of Present Illness Details 34 y/o F with DJD of C spine, splenomegaly, s/p displaced fracture of R 5th metacarpal, MDD, Hep c, Opiate use disorder in remission,was on methadone,clean since 2019, GERD, chronic diarrhea, KRISTOPHER, family hx cardiomyopathy s/p cholecystectomy 04/2024 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 The diarrhea has persisted since the end of September, and no pain or specific abdominal location is associated with it. She reports notable weight loss of 30 pounds since November 11, 2022, when she weighed 161 pounds. The problem has progressively worsened over time. Previous attempts to see a lime slaker have been delayed due to long wait times. She has attempted weol-viv-eydvtkv antidiarrheals, which provide temporary relief; however, they are not consistently effective, and medical guidance advised against frequent use. There have been no medication changes before the onset of the diarrhea. The patient has not seen a vocational guidance counselor or received treatment for her hepatitis C. 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 - Reports long-standing therapeutic relationship with current psychiatrist (3-4 years) and therapist (8 years). - History of heroin use initiated from prescribed medication for back pain, sober for almost four years. - Ceased methadone maintenance treatment. - No current involvement in sports or physical therapy. Review of Systems - Gastrointestinal: Reports persistent chronic diarrhea, associated with weight loss of 30 pounds. - General: Denies abdominal pain or overt persistent symptoms except diarrhea and episodic vomiting. - Psychiatric: Reports depression and anxiety, positive depression screening. Physical Exam General: Cooperative, healthy appearing, comfortable, no acute distress and well developed Orientation: Patient oriented x3 Limitations: No limitations Head: Normal to inspection Ears: Hearing grossly normal bilaterally Nose: Normal external nose present Face and sinus: Normal facial exam Eyes: Appearance normal, both eyes and all related structures Neck: Normal visual inspection and Yes full ROM Respiratory: Normal respiratory effort and able to speak in complete sentences. Clear to auscultation bilaterally Cardiovascular: Regular rate and rhythm. Normal S1 and S2 GI: Normal to inspection. Soft to palpation and nontender Skin: No rashes or lesions noted Neuro: Patient oriented x3 Extremities: Normal to inspection Results - Imaging: Abdominal ultrasound 2022 reviewed along w Labs 01/2024 WNL Plan - Gastroenterology referral to address chronic diarrhea and significant weight loss. - Imaging: Arrange an abdominal ultrasound to assess for potential liver or splenic concerns due to hepatitis C. - Hepatitis C: Consider referral to the hepatitis C clinic for management based on forthcoming lab results. - Psychological: Continue existing psychiatric care with established psychiatrist and counselor. - Routine Maintenance: Initiate follow-up on past screenings such as Pap smear and routine women's health checks. - Obtain echocardiogram owing to family history to screen for hereditary cardiac conditions & IVDA Patient was informed and verbally consented to the use of an ambient scribe for clinic note documentation during this visit. Discussion Notes I discussed the importance of managing and evaluating the patient's persistent diarrhea and associated weight loss with potential gastrointestinal issues as priorities. We agreed upon arranging a gastroenterology referral as well as an abdominal ultrasound to investigate hepatic and splenic conditions. Additionally, I stressed the need for evaluation of hepatitis C management to potentially initiate antiviral therapy if indicated. The patient's psychiatric support through her therapist and psychiatrist remains integral, especially considering her positive depression screening and the stress of recent familial loss. We reviewed the importance of routine health screenings, including a Pap smear, which aligns with health maintenance routines. Further lab work was ordered, and I outlined the necessity for an echocardiogram due to significant family cardiac history & IVDA. Patient Instructions - Schedule and attend gastroenterology evaluation for chronic diarrhea. - Complete abdominal ultrasound as arranged, ensuring follow-up on findings. - Follow-up with hepatitis C clinic as advised based on lab results. Will refer if needed. - Maintain current psychiatric care and consult current providers for any changes in mental health symptoms. - Schedule and attend routine women's health screenings, including Pap smear - Report any worsening of gastrointestinal symptoms or significant weight loss. - Contact healthcare provider with any new concerns. RTO 6 weeks via telehealth to review labs and imaging, sooner PRN An additional 30 minutes was spent managing additional items above and beyond wellness, this includes face to face time, etc. [facility] Medical History (Updated 08/07/24 @ 11:41 by Leticia Brady, [facility]) Displaced fracture of neck of right fifth metacarpal bone Anxiety and depression Cervical pain (neck) Cervical muscle strain Lumbar back pain Splenomegaly Surgical History (Updated 08/07/24 @ 11:08 by Parker Duenas MA) Hx of cholecystectomy Family History (Updated 08/07/24 @ 11:07 by Parker Duenas MA) Mother Hypertension Diabetes Cardiovascular disease Stroke Father No problems noted. Sister No problems noted. Daughter No problems noted. Daughter No problems noted. Daughter No problems noted. 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 1. Little interest or pleasure in doing things: several days 2. Feeling down, depressed, or hopeless: not at all 3. Trouble falling or staying asleep, or sleeping too much: more than half the days 4. Feeling tired or having little energy: more than half the days 5. Poor appetite or overeating: nearly every day 6. Feeling bad about yourself - or that you are a failure or have let yourself or your family down: not at all 7. Trouble concentrating on things, such as reading the newspaper or watching television: not at all 8. Moving or speaking so slowly that other people could have noticed. Or the opposite - being so fidgety or restless that you have been moving around a lot more than usual: not at all 9. Thoughts that you would be better off or of hurting yourself in some way: not at all Total score: 8 Depression Screening Interpretation: Negative Depression Screening Done: Yes 06433 - PHQ-9 Billing: Yes Source: Developed by Drs. Rios Cisneros, Glo Rios, Patricio Ferrara and colleagues, with an educational dania from [employer]. Thrive Questionnaire Date Thrive assessed: 08/07/24 I am a: Patient What is your living situation today?: I have a steady place to live Within the past 12 months, did the food you bought not last and you didn't have the money to get more?: Never true Within the past 12 months, did you worry whether your food would run out before you got money to buy more?: Never true Do you have trouble paying for medicines?: No Do you have trouble getting transportation to medical appointments?: No Do you have trouble paying your heating and electricity bill?: No Do you have trouble taking care of your child, family member or friend?: No Do you have trouble with day-to-day activities such as bathing, preparing meals, shopping, managing finances, etc.?: No Are you currently unemployed and looking for a job?: No Are you interested in more education?: No Please select the resources that you would like help with: None Currently or been in a relationship where the following occur: I choose not to answer THRIVE Score: 0 AUDIT C Alcohol Use Questionnaire (AUDIT-C) 1. How often do you have a drink containing alcohol?: Monthly or less 2. How many drinks containing alcohol do you have on a typical day when you are drinking?: 3 or 4 3. How often do you have six or more drinks on one occasion?: Never Total Score: 2 Score Reviewed/Action Taken: Yes KRISTOPHER-7 AMB Questionnaire KRISTOPHER-7 Date KRISTOPHER - 7 assessed: 08/07/24 Feeling nervous, anxious, or on edge: 2 = More than half the days Not being able to stop or control worryin = Nearly every day Worrying too much about different things: 2 = More than half the days Trouble relaxin = More than half the days Being so restless that it is hard to sit still: 0 = Not at all Becoming easily annoyed or irritable: 1 = Several days Feeling afraid as if something awful might happen: 1 = Several days Total KRISTOPHER-7 score (0-4 normal; 5-9 mild; 10-14 moderate; 15-21 severe): 11 Source: Developed by Drs. Rios Cisneros, Glo Rios, Patricio Ferrara and colleagues, with an educational dania from [employer]. KRISTOPHER-7 Assessment Billing KRISTOPHER-7 Assessment Tool: KRISTOPHER-7 Assessment 98751 Physical exam (Primary Care) Vital Signs: Last Vital Signs Pulse 72 08/07/24 11:08 Resp 12 08/07/24 11:08 BP 98/66 08/07/24 11:08 Pulse Ox 98 08/07/24 11:08 Oxygen Delivery Method Room Air 08/07/24 11:08 BMI result Body Mass Index 20.5 Tobacco/Smoking Status: Tobacco use Status Tobacco use date assessed 08/07/24 08/07/24 11:10 Patient Tobacco Use Status Never used Tobacco 08/07/24 10:49 e-Cigarette/Vaping Use Currently Using 08/07/24 10:49 PHQ-9: PHQ-9 Score PHQ-9: Total score 8 08/07/24 12:32 Depression Screening Interpretation: Negative Thrive Assessment: Date of Thrive Assessment Date Thrive assessed 08/07/24 08/07/24 11:10 Currently or been in a relationship where the following occur: I choose not to answer Office Procedures Flu Questionnaire Does the patient have a severe egg allergy?: No Does the patient have severe life threatening allergies?: No Does the patient have a fever or illness today?: No Has the patient ever had Guillain-[place] Syndrome?: No Has the patient ever had any past reaction to a flu shot?: No Immunizations Fluarix Triv [id number] (PF) 45 mcg (15 mcg x 3)/0.5 mL IM syringe Performing Provider: JERRICA Gavin Performing Location: [facility] Administered by: Lyudmila Levine RN on 08/07/24 11:47 Dose Route Admin Location Dispensed Lot Number Expiration Date [facility] Refrigeration Service Technician 0.5 mL IM Left Deltoid 0.5 mL [id number] 02/25/25 [id number] [employer] VIS Given Date VIS Provided VIS Publication Date 08/07/24 Single Vaccine 21 Eligibility Eligibility Date Funding Source Not [facility] Eligible 08/07/24 Private Coding Level of Care Code Est Pt Level 4 (03765) Est Pt Prev Care 18-39y(67033) Diagnoses Encounter for general adult medical examination with abnormal findings Z00.01 Chronic diarrhea K52.9 Weight loss R63.4 Moderate episode of recurrent major depressive disorder F33.1 Major depression episode severity: moderate KRISTOPHER (generalized anxiety disorder) F41.1 Hepatitis C virus infection without hepatic coma, unspecified chronicity B19.20 Hepatic coma status: without hepatic coma Viral hepatitis chronicity: unspecified Hx of intravenous drug use in remission Z87.898 Family history of cardiomyopathy Z82.49 Splenomegaly R16.1 Opiate use F11.90 Influenza vaccination administered at current visit Z23 Additional Codes KRISTOPHER-7 Assessment Billing - KRISTOPHER-7 Assessment Tool: KRISTOPHER-7 Assessment 97473 ([id number]) PHQ-9 - 06895 - PHQ-9 Billing: Yes ([id number]) Assessment & Plan Assessment & Plan (1) Encounter for general adult medical examination with abnormal findings: Code(s): Z00.01 - Encounter for general adult medical examination with abnormal findings (2) Chronic diarrhea: Code(s): K52.9 - Noninfective gastroenteritis and colitis, unspecified Category: Medical (3) Weight loss: Code(s): R63.4 - Abnormal weight loss Category: Medical (4) MDD (major depressive disorder), recurrent episode: Code(s): F33.9 - Major depressive disorder, recurrent, unspecified Category: Medical Qualifiers: Major depression episode severity: moderate Qualified Code(s): F33.1 - Major depressive disorder, recurrent, moderate (5) KRISTOPHER (generalized anxiety disorder): Code(s): F41.1 - Generalized anxiety disorder Category: Medical (6) Hepatitis C: Code(s): B19.20 - Unspecified viral hepatitis C without hepatic coma Category: Medical Qualifiers: Hepatic coma status: without hepatic coma Viral hepatitis chronicity: unspecified Qualified Code(s): B19.20 - Unspecified viral hepatitis C without hepatic coma (7) Hx of intravenous drug use in remission: Code(s): Z87.898 - Personal history of other specified conditions Category: Social Hx (8) Family history of cardiomyopathy: Comment: mom Code(s): Z82.49 - Family history of ischemic heart disease and other diseases of the circulatory system Category: Medical (9) Splenomegaly: Comment: mild noted on us abd 2022 Code(s): R16.1 - Splenomegaly, not elsewhere classified Category: Medical (10) Opiate use: Comment: in remission Code(s): F11.90 - Opioid use, unspecified, uncomplicated Category: Medical (11) Influenza vaccination administered at current visit: Code(s): Z23 - Encounter for immunization Plan . Orders: Orders US abdomen limited Today B19.20 - Unspecified viral hepatitis C without hepatic coma CA echo transthoracic complete Today Z82.49 - Family history of ischemic heart disease and other diseases of the circulatory system, Z87.898 - Personal history of other specified conditions Complete Blood Count no Diff Today B19.20 - Unspecified viral hepatitis C without hepatic coma, K52.9 - Noninfective gastroenteritis and colitis, unspecified, R16.1 - Splenomegaly, not elsewhere classified, R63.4 - Abnormal weight loss Comprehensive Met. Panel Today B19.20 - Unspecified viral hepatitis C without hepatic coma, K52.9 - Noninfective gastroenteritis and colitis, unspecified, R16.1 - Splenomegaly, not elsewhere classified, R63.4 - Abnormal weight loss Hepatitis A,B,C Profile Today B19.20 - Unspecified viral hepatitis C without hepatic coma, K52.9 - Noninfective gastroenteritis and colitis, unspecified, R16.1 - Splenomegaly, not elsewhere classified, R63.4 - Abnormal weight loss Hepatitis C Genotype Today B19.20 - Unspecified viral hepatitis C without hepatic coma, K52.9 - Noninfective gastroenteritis and colitis, unspecified, R16.1 - Splenomegaly, not elsewhere classified, R63.4 - Abnormal weight loss Hepatitis C Viral Load Today B19.20 - Unspecified viral hepatitis C without hepatic coma, K52.9 - Noninfective gastroenteritis and colitis, unspecified, R16.1 - Splenomegaly, not elsewhere classified, R63.4 - Abnormal weight loss Amylase Today B19.20 - Unspecified viral hepatitis C without hepatic coma, K52.9 - Noninfective gastroenteritis and colitis, unspecified, R16.1 - Splenomegaly, not elsewhere classified, R63.4 - Abnormal weight loss Influenza [id number] Immunization Today Z23 - Encounter for immunization Hemoglobin A1c Today B19.20 - Unspecified viral hepatitis C without hepatic coma, K52.9 - Noninfective gastroenteritis and colitis, unspecified, R16.1 - Splenomegaly, not elsewhere classified, R63.4 - Abnormal weight loss Lipid Panel Today B19.20 - Unspecified viral hepatitis C without hepatic coma, K52.9 - Noninfective gastroenteritis and colitis, unspecified, R16.1 - Splenomegaly, not elsewhere classified, R63.4 - Abnormal weight loss Microalbumin, Random (w Creat) Today B19.20 - Unspecified viral hepatitis C without hepatic coma, K52.9 - Noninfective gastroenteritis and colitis, unspecified, R16.1 - Splenomegaly, not elsewhere classified, R63.4 - Abnormal weight loss TSH reflex Free T4 Today B19.20 - Unspecified viral hepatitis C without hepatic coma, K52.9 - Noninfective gastroenteritis and colitis, unspecified, R16.1 - Splenomegaly, not elsewhere classified, R63.4 - Abnormal weight loss Vitamin D 25-OH Total Today B19.20 - Unspecified viral hepatitis C without hepatic coma, K52.9 - Noninfective gastroenteritis and colitis, unspecified, R16.1 - Splenomegaly, not elsewhere classified, R63.4 - Abnormal weight loss Hepatitis C Antibody Reflex Today B19.20 - Unspecified viral hepatitis C without hepatic coma, K52.9 - Noninfective gastroenteritis and colitis, unspecified, R16.1 - Splenomegaly, not elsewhere classified, R63.4 - Abnormal weight loss Lipase Today B19.20 - Unspecified viral hepatitis C without hepatic coma, K52.9 - Noninfective gastroenteritis and colitis, unspecified, R16.1 - Splenomegaly, not elsewhere classified, R63.4 - Abnormal weight loss Referrals Gastroenterology Referral K52.9 - Noninfective gastroenteritis and colitis, unspecified Patient Instructions: Walk-In Care (Urgent Care): We Make it Easy Walk-in for urgent medical issues such as: ? Seasonal Allergies ? Insect Bites ? Cough ? Diarrhea ? Acute Asthma Attacks ? Back, Knee or Joint Pain ? Ear Infection ? Fever without a Rash ? Headaches ? Nausea ? [place] [facility], Rash or Skin Irritation ? Sore Throat ? Sports Physicals ? Vomiting Most insurances are accepted. Patients do not need to be part of the [facility] to seek care at the walk-in clinic. Locations [facility] , [place] [address] ? [phone] [facility] in [place] provides services to ages 18 and over. Open Tuesday-Tuesday: 8 a.m. to 5 p.m. and Tuesday: 9 a.m. to 3 p.m.* *Hours may vary due to staffing availability. To confirm Walk-In Care hours in [place], please call [phone]. [address] [place] [address] ? [phone] [facility] in [place] provides services to ages 12 and over. Open Tuesday-Tuesday: 8 a.m. to 5 p.m. Hours may vary due to staffing availability. To confirm Walk-In Care hours in [place], please call [phone]. LABORATORY SERVICES: [facility] ? Primary Location [address] [place] [address] Tuesday through Tuesday 6:00 AM ? 5:00 PM Tuesday 7:00 AM ? 11:00 AM* [phone] The [facility] is centrally located near the front entrance of the [facility] for easy outpatient access. Convenient parking is provided for outpatients. *Hours may vary due to staffing availability. To confirm Laboratory hours for any location, please call [phone]. Offsite Location For your convenience, we offer offsite laboratory draw stations at the following locations: [address] [place] [address] ? [facility] [address], [address], [place] Tuesday through Tuesday 7:30 AM ? 1:00 PM* [phone] *Hours may vary due to staffing availability. To confirm Laboratory hours for any location, please call [phone]. [place] ? [facility] [address] [facility] [address] Miranda Tuesday through Tuesday 6:00 AM ? 3:30 PM* Tuesday 6:30 AM ? 3 PM* [phone] *Hours may vary due to staffing availability. To confirm Laboratory hours for any location, please call [phone]. [address] [facility] Tuesday through Tuesday 7:30 AM ? 4:00 PM* [phone] *Hours may vary due to staffing availability. To confirm Laboratory hours for any location, please call [phone]. [facility] [address] [facility] Tuesday through 9:00 AM ? 4:00 PM* *Hours may vary due to staffing availability. To confirm Laboratory hours for any location, please call [phone]. Appointments are not necessary. Walk-ins are welcome. Like all the departments throughout the [facility], our Lab undergoes frequent reviews to ensure the quality and accuracy of test results, and our staff takes special pride in its status as a nationally accredited facility. Patient Portal: ONE PATIENT. ONE RECORD. BETTER CARE. [facility] has a fully integrated, cutting-edge mobile electronic health information system that has revolutionized the way we care for our patients and manage our organization. This system improves communication and coordination enabling us to provide safe, higher-quality care, and an overall positive experience for staff and patients. Our first priority, as always, is to deliver the highest quality care possible. The system is running in the background supporting that priority. This portal is for all [facility] services and practices. If you are experiencing any technical difficulties with enrolling or logging into the Patient Portal please complete the [facility] Patient Portal Technical Support Form. [facility] now offers a new secure on-line interactive tool for patients to review their health information ? ?Patient Portal. This interactive web portal will enable patients and their families to take an active role in their care by providing easy, secure access to their health information via the internet. The Patient Portal provides patients with instant access to their health information, including laboratory results, medications, allergies, demographic information, visit history, and more. In addition to managing their own care, parents and health care proxies with authorized consent will appreciate the ability to access the records of those individuals for whom they provide care. Please note: if you wish to gain access (Proxy) to another patient?s portal, you will be required to come to the Medical Records Department in person at [facility]. Both the patient giving proxy access and the proxy will need to provide photo identification and complete the appropriate authorization. The Patient Portal also allows track their appointments online. The [facility] Patient Portal also saves patients time by allowing them to submit updates to their demographic and contact information prior to their visits. Portal email notifications will also alert patients to any new activity on their portal, such as test results and new appointments. In order to initially enroll in the [facility] Patient Portal, you will need to enter some required information including the following: your [facility] Medical Record number your personal home email address name date of Please note: In order to enroll in the [facility] Patient Portal, we need to have your email address on file in your electronic medical record. ?The email address needs to be specific for one person (yourself) in order for your Portal enrollment to be successful. ?You can update your email address in person with our Registration staff when you are registering for a hospital visit. ?Otherwise, you will need to come to the Health Information Management (Medical Records) Department at [facility]. ?We are open from Tuesday ? Tuesday from 7:30 a.m. ? 4:30 p.m. ?You will be required to present a photo id. Once you have successfully enrolled in the Patient Portal, you will receive a one-time user id and password for the Portal, sent to your email address. ?This will allow you to log into the Patient Portal within 99 hrs and reset your own logon id and password, and define personal security questions. ?Once your permanent login and password have been set, you can log into the [facility] Patient Portal at any time via the blue button above or from the Portal Logon button on any page of the [facility] website. [facility] and [facility] encourage all of our patients to enroll in Patient Portal as it presents a valuable opportunity for patients and their families to actively participate in their care and stay healthy Welcome to [facility]. ?We look forward to working with you. Health screenings for women You should visit your health care provider from time to time, even if you are healthy. The purpose of these visits is to: Screen for medical issues Assess your risk for future medical problems Encourage a healthy lifestyle Update vaccinations and other preventive care services Help you get to know your provider in case of an illness Information Even if you feel fine, you should still see your provider for regular checkups. These visits can help you avoid problems in the future. For example, the only way to find out if you have high blood pressure is to have it checked regularly. High blood sugar and high cholesterol levels also may not have any symptoms in the early stages. A simple blood test can check for these conditions. There are specific times when you should see your provider or receive specific health screenings. The [place] Preventive Services Task Force publishes a list of recommended screenings. Below are screening guidelines for women ages 18 to 39. BLOOD PRESSURE SCREENING Your blood pressure should be checked at least once every 3 to 5 years if: Your blood pressure is in the normal range (top number less than 120 mm Hg and bottom number less than 80 mm Hg) You don't have risk factors for high blood pressure Ask your provider if you need your blood pressure checked more often if: The top number is 120 to 129 mm Hg or the bottom number is 70 to 79 mm Hg You have diabetes, heart disease, kidney problems, are overweight, or have certain other health conditions You have a first-degree relative with high blood pressure You are Black You had high blood pressure during a If the top number is 130 mm Hg or greater or the bottom number is 80 mm Hg or greater, this is considered stage 1 hypertension. Schedule an appointment with your provider to learn how you can reduce your blood pressure. Watch for blood pressure screenings in your area. Ask your provider if you can stop in to have your blood pressure checked. BREAST CANCER SCREENING Experts do not agree about the benefits of breast self-exams in finding breast cancer or saving lives. Talk to your provider about what is best for you. A screening mammogram is not recommended for most women under age 40. Your provider may discuss and recommend mammograms, MRI scans, or ultrasounds if you have an increased risk for breast cancer, such as: A mother or sister who had breast cancer at a young age (most often starting screening earlier than the age the close relative was diagnosed) You carry a high-risk genetic marker CERVICAL CANCER SCREENING Cervical cancer screening should start at age 21 years unless your provider advises otherwise. After the first test: Women ages 21 through 29 should have a Pap test every 3 years. Exoprts do not agree on whether HPV testing is recommended for this age group. Women ages 30 through 65 should be screened with either a Pap test every 3 years or the HPV test every 5 years or both tests every 5 years (called cotesting ). Women who have been treated for precancer (cervical dysplasia) should continue to have Pap tests for 20 years after treatment or until age 65, whichever is longer. If you have had your uterus and cervix removed (total hysterectomy), and you have not been diagnosed with cervical cancer or precancer (high grade cervical neoplasia), you do not need cervical cancer screening. CHOLESTEROL SCREENING Cholesterol screening should begin at: Age 45 for women with no known risk factors for coronary heart disease Age 20 for women with known risk factors for coronary heart disease Repeat cholesterol screening should take place: Every 5 years for women with normal cholesterol levels More often if changes occur in lifestyle (including weight gain and diet) More often if you have diabetes, heart disease, kidney problems, or certain other conditions DIABETES SCREENING You should be screened for diabetes starting at age 35 and then repeated every 3 years if you have no risk factors for diabetes. Screening may need to start earlier and be repeated more often if you have other risk factors for diabetes, such as: You have a first degree relative with diabetes. You are overweight or have obesity. You have high blood pressure, prediabetes, or a history of heart disease. Screening for diabetes should be done if you are planning to become and you are overweight and have other risk factors such as high blood pressure. DENTAL EXAM Go to the dentist once or twice every year for an exam and cleaning. Your dentist will evaluate if you need more frequent visits. EYE EXAM Have an eye exam every 5 to 10 years before age 40. If you have vision problems, have an eye exam every 2 years or more often if recommended by your provider. You should have an eye exam that includes an examination of your retina (back of your eye) at least every year if you have diabetes. IMMUNIZATIONS Commonly needed vaccines include: Flu shot: get one every year. COVID-19 vaccine: ask your provider what is best for you. Tetanus-diphtheria and acellular pertussis (Tdap) vaccine: have one at or after age 19 as one of your tetanus-diphtheria vaccines if you did not receive it as an adolescent. Tetanus-diphtheria: have a booster (or Tdap) every 10 years. Varicella vaccine: receive 2 doses if you never had chickenpox or the varicella vaccine. Hepatitis B vaccine: receive 2, 3, or 4 doses, depending on your exact circumstances. Measles, mumps, and rubella (MMR) vaccine: receive 1 to 2 doses if you are not already immune to MMR. Your provider can tell you if you are immune. Ask your provider about the human papillomavirus (HPV) vaccine if: You have not received the HPV vaccine in the past You have not completed the full vaccine series (you should catch up on this shot) Ask your provider if you should receive other immunizations if you have certain health problems that increase your risk for some diseases such as pneumonia. INFECTIOUS DISEASE SCREENING Women who are sexually active should be screened for chlamydia and gonorrhea up until age 25. Women 25 years and older should be screened for chlamydia and gonorrhea if at high risk. Screening for hepatitis C: All adults ages 18 to 79 should get a one-time test for hepatitis C. people should be screened at every . Screening for human immunodeficiency virus (HIV): All people ages 15 to 65 should get a one-time test for HIV. Depending on your lifestyle and medical history, you may also need to be screened for infections such as syphilis and HIV, as well as other infections. PHYSICAL EXAM All adults should visit their provider from time to time, even if they are healthy. The purpose of these visits is to: Screen for disease Assess your risk of future medical problems Encourage a healthy lifestyle Update your vaccinations and other preventive care services Maintain a relationship with a provider in case of an illness Your height, weight, and BMI should be checked at every exam. During your exam, your provider may ask you about: Depression and anxiety Diet and exercise Alcohol and tobacco use Safety issues, such as using seat belts, smoke detectors, and intimate partner violence Your medicines and risk for interactions SKIN SELF-EXAM Your provider may check your skin for signs of skin cancer, especially if you're at high risk, such as if you: Have had skin cancer before Have close relatives with skin cancer Have a weakened immune system OTHER SCREENING Talk with your provider about colon cancer screening if you have a strong family history of colon cancer or polyps, or if you have had inflammatory bowel disease or polyps yourself. Routine bone density screening of women under 40 is not recommended.
[2024-08-07 11:08] VITALS: BP 98/66; PULSE 72; RESP 12; O2SAT 98; BMI 20.5
== END 2024-08-07 11:51 | disposition home or self-care (01) ==
PROVIDERS: PCP Nurse Practitioner Family; Visit Provider Nurse Practitioner Family
DX: Z00.00 Encounter for general adult medical examination without abnormal findings (principal); K52.9 Noninfective gastroenteritis and colitis, unspecified; R63.4 Abnormal weight loss; F33.1 Major depressive disorder, recurrent, moderate; F41.1 Generalized anxiety disorder; B19.20 Unspecified viral hepatitis C without hepatic coma; Z87.898 Personal history of other specified conditions; Z82.49 Family history of ischemic heart disease and other diseases of the circulatory system; R16.1 Splenomegaly, not elsewhere classified; F11.90 Opioid use, unspecified, uncomplicated; Z23 Encounter for immunization

== ENCOUNTER → 2024-08-07 10:42 | Outpatient (BNVA) | payer OTHER, SELFPAY | PROVIDERS: PCP Nurse Practitioner Family; Visit Provider Nurse Practitioner Family | DX: Z00.01 Encounter for general adult medical examination with abnormal findings (principal); Z23 Encounter for immunization; K52.9 Noninfective gastroenteritis and colitis, unspecified; R63.4 Abnormal weight loss; F33.1 Major depressive disorder, recurrent, moderate; F41.1 Generalized anxiety disorder; B19.20 Unspecified viral hepatitis C without hepatic coma; R16.1 Splenomegaly, not elsewhere classified; F11.90 Opioid use, unspecified, uncomplicated; Z82.49 Family history of ischemic heart disease and other diseases of the circulatory system; Z87.898 Personal history of other specified conditions | CPT/HCPCS: 90471; 90656; 96127; 99212; 99395 ==

== ENCOUNTER → 2024-09-13 10:01 | Outpatient (REF) | payer OTHER, SELFPAY ==
--- NOTE | 2024-09-13 10:05 | CA_ITS ---
Transthoracic Echocardiogram Patient (Last, First, Middle): Dmoinique Troy, Gender: Female Date of : 1990 Age: 34 Procedure Date: 09/13/2024 Procedure Type: Transthoracic Echocardiogram Location: OP Height: 170.18 cm Weight: 54.43 kg BSA: 1.63 m2 Heart Rate: bpm BP: 110 / 76 mmHg Bulk Gas Specialist: TO Referring MD: Leticia Brady [facility] [employer] Underwriter: Braxton Oneal MD Symptoms: Z87.898 - Personal history of other specified conditions Study Quality: Adequate ECG Rhythm: Sinus Conclusions: - Normal study Findings Left Ventricle Normal left ventricular size, thickness, and systolic function. The visually estimated ejection fraction is between 55-60%. Diastolic function is normal for age. Right Ventricle Normal right ventricular cavity size and systolic function. Atria Both atria are normal in size. There is no evidence of interatrial shunt. Aortic Valve Normal aortic valve structure and function. There is no aortic valve stenosis. There is no aortic valve regurgitation. Mitral Valve Normal mitral valve structure and function. There is trace mitral valve regurgitation. There is no mitral valve stenosis. Pulmonic Valve The pulmonic valve is likely normal. There is trace pulmonic valve regurgitation. Tricuspid Valve Normal tricuspid valve structure. There is trace tricuspid valve regurgitation. The right ventricular systolic pressure is normal. The right ventricular systolic pressure is 10 mmHg. Normal right atrial pressure. There is no evidence of pulmonary hypertension. Great Vessels All visible segments of the aorta are normal in size. There is no dilatation of the ascending aorta measuring 2.80 cm. The visualized portions of the pulmonary artery and branches are normal. Venous The inferior vena cava is normal in size and collapses greater than 50% with inspiration. Pericardium/Pleural There is no evidence of pericardial effusion. Prior Study Comparison No prior study available for comparison. Measurements 2D Linear Measurements IVSd: 0.96 0.6-0.9/0.6-1.0 cm LVIDd: 4.16 3.9-5.3/4.2-5.9 cm LVIDd Index: 2.55 2.4-3.2/2.2-3.1 cm/m2 LVIDs: 2.86 2.0-3.6 cm LVPWd: 0.64 0.7-1.1 cm LA Diam: 3.20 2.7-3.8/3.0-4.0 cm LAIDs Index: 1.96 1.5-2.3 cm/m2 LV Mass: 123.46 67-162/88-224 g LV Mass Index: 75.74 43-95/49-115 g/m2 LVOT Diam: 2.30 3.0+(-)1.3 cm 2D Systolic Function EF 4C: 54.70 >55% EF 2C: 57.20 >55% EF BiP: 56.50 >55% Mitral Valve MV Pk E: 0.45 MV PK A: 0.27 MV Decel Time: 236.00 E/A: 1.70 E'Lateral: 16.30 E'Medial: 10.60 E/E' Med: 4.20 E/E' Lat: 2.80 PHT: 69.00 MVA PHT: 3.19 Decel Tama: 1.90 Aortic Valve AoV Pk Arnold: 1.21 AoV Mn Arnold: 0.84 AoV VTI: 0.26 AoV Pk Grad: 6.00 Aov Mn Grad: 3.00 POLI Cont.VTI: 3.12 LVOT LVOT Pk Arnold: 0.96 LVOT Mn Arnold: 0.59 LVOT VTI: 0.19 LVOT Pk Grad: 4.00 LVOT Mn Grad: 2.00 LVOT Diam: 2.30 LVOT Area: 4.15 Diastolic Function MV Pk E: 0.45 MV Pk A: 0.27 E/A: 1.70 E'Medial: 10.60 E/E' Med: 4.20 E' Laterial: 16.30 E/E' Lat: 2.80 Right Ventricle TAPSE (mm): 19.20 TVS' Arnold: 11.40 Tricuspid Valve TR Pk Arnold: 1.30 TR Pk Grad: 7.00 RA Press: 3.00 RVSP: 10.00 Great Vessels Aorta Sinus of Valsalva: 3.03 2.0-3.5 cm Ao Asc: 2.80 2.1-3.4 cm Updated in Other Vendor System with Status of Final Braxton Oneal MD electronically signed on 09/14/2024 8:37:03 AM with status of Final
== END ==
LOC: HO.CARD 10:01
PROVIDERS: PCP Nurse Practitioner Family; Visit Provider Nurse Practitioner Family
DX: Z87.898 Personal history of other specified conditions (principal); Z82.49 Family history of ischemic heart disease and other diseases of the circulatory system
CPT/HCPCS: 93306

== ENCOUNTER → 2024-09-13 10:05 | Outpatient (BNV) | payer OTHER, SELFPAY | PROVIDERS: PCP Nurse Practitioner Family; Visit Provider Internal Medicine Cardiovascular Disease | DX: B19.20 Unspecified viral hepatitis C without hepatic coma (principal); Z82.49 Family history of ischemic heart disease and other diseases of the circulatory system | CPT/HCPCS: 93306 ==

== ENCOUNTER 2024-09-19 15:19 | Outpatient (AMB) | payer OTHER, SELFPAY ==
--- NOTE | 2024-09-19 16:05 | MHC.PC.OV ---
Intake Visit Reasons: 6 weeks telehealth fu labs/imaging results Allergies No Known Allergies Allergy (Verified 08/07/24 11:17) Medication List - Last Reconciled 09/19/24 by Leticia Brady [facility] buspirone 5 mg PO BID clonazepam 1 mg PO DAILY etonogestrel (Nexplanon) subdermal gabapentin 0 mg PO omeprazole 20 mg PO DAILY sertraline 200 mg PO ONCE trazodone 50 mg PO BEDTIME Tobacco use date assessed: 09/19/24 Dental Screening Dental Screen Date: 09/19/24 Did you have a dental visit in the last 12 months?: Yes Did you have a dental problem in the last 6 months where you did not have access to dental care?: No Was dental information given to patient?: Patient has dentist HPI HPI Comments History of Present Illness Details 34 y/o F with DJD of C spine, splenomegaly, s/p displaced fracture of R 5th metacarpal, MDD, Hep c, Opiate use disorder in remission,was on methadone,clean since 2019, GERD, chronic diarrhea, KRISTOPHER, family hx cardiomyopathy s/p cholecystectomy 04/2024 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 She has a notable past medical history of intravenous drug use and hepatitis C. Recently, both she and her daughter were diagnosed with pneumonia, leading to canceled medical appointments. In the family history, there is a known occurrence of cardiomyopathy. An echocardiogram. The echocardiogram reportedly showed mild valve regurgitation but no other concerning findings related to cardiomyopathy. Results as below. The patient missed the abdominal ultrasound appointment due to the pneumonia incident. She is feeling better s/p PNA. Social History - Previous intravenous drug use - Caring for a daughter who was recently ill with pneumonia Results Results Labs ordered 06/2024 not done Abd US: not done Echo: 08/2024 results avail Full lab panel 01/2024 reviewed WNL Plan - Reschedule abdominal ultrasound and complete pending laboratory tests. - Follow-up telehealth appointment scheduled for October 23 at 4:00 PM. Patient was informed and verbally consented to the use of an ambient scribe for clinic note documentation during this visit. Discussion Notes During the telehealth visit, I discussed the results of the echocardiogram with the patient, confirming that there was no evidence of serious heart conditions such as cardiomyopathy, despite the mild valve regurgitation. We spoke about the need to complete pending laboratory tests and the abdominal ultrasound, and I offered to coordinate rescheduling these procedures where necessary. I noted that the patient has a follow-up telehealth appointment set for October 23. She was instructed to send a message through the portal if any rescheduling issues occur. I encouraged her to continue her health management strategies and reach out if further assistance is needed before the next scheduled visit. Patient Instructions - Complete all pending laboratory tests and abdominal ultrasound prior to October 23 appointment. - Attend the telehealth follow-up appointment on October 23 at 4:00 PM. - Contact through the portal if there is difficulty completing the tests or if any health concerns arise before the next appointment. Total time spent caring for the patient today was 15 minutes. This includes time spent before the visit reviewing the chart, time spent during the visit, and time spent after the visit on documentation, reviewing laboratory results, diagnostic imaging, medications, performing a medically necessary evaluation, counseling on diagnoses, care coordination, ordering appropriate tests, ordering appropriate medications, review of tests performed by other providers, reporting test results with the patient, communication with other healthcare providers. [facility], [facility] Medical History (Updated 08/07/24 @ 11:41 by Leticia Brady, [facility]) Displaced fracture of neck of right fifth metacarpal bone Anxiety and depression Cervical pain (neck) Cervical muscle strain Lumbar back pain Splenomegaly Surgical History (Updated 08/07/24 @ 11:08 by Parker Duenas MA) Hx of cholecystectomy Family History (Updated 08/07/24 @ 11:07 by Parker Duenas MA) Mother Hypertension Diabetes Cardiovascular disease Stroke Father No problems noted. Sister No problems noted. Daughter No problems noted. Daughter No problems noted. Daughter No problems noted. 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 Cognitive needs: No Hearing needs: No Vision needs: Yes Questionnaire Thrive Questionnaire Date Thrive assessed: 08/07/24 I am a: Patient What is your living situation today?: I have a steady place to live Within the past 12 months, did the food you bought not last and you didn't have the money to get more?: Never true Within the past 12 months, did you worry whether your food would run out before you got money to buy more?: Never true Do you have trouble paying for medicines?: No Do you have trouble getting transportation to medical appointments?: No Do you have trouble paying your heating and electricity bill?: No Do you have trouble taking care of your child, family member or friend?: No Do you have trouble with day-to-day activities such as bathing, preparing meals, shopping, managing finances, etc.?: No Are you currently unemployed and looking for a job?: No Are you interested in more education?: No Please select the resources that you would like help with: None Currently or been in a relationship where the following occur: I choose not to answer THRIVE Score: 0 AUDIT C Alcohol Use Questionnaire (AUDIT-C) 3. How often do you have six or more drinks on one occasion?: Less than monthly Total Score: 1 KRISTOPHER-7 AMB Questionnaire KRISTOPHER-7 Date KRISTOPHER - 7 assessed: 08/07/24 Source: Developed by Drs. Rios Cisneros, Glo Rios, Patricio Ferrara and colleagues, with an educational dania from [employer]. Physical exam (Primary Care) Tobacco/Smoking Status: Tobacco use Status Tobacco use date assessed 08/07/24 08/07/24 11:10 Patient Tobacco Use Status Never used Tobacco 08/07/24 10:49 e-Cigarette/Vaping Use Currently Using 08/07/24 10:49 Thrive Assessment: Date of Thrive Assessment Date Thrive assessed 08/07/24 08/07/24 11:10 Currently or been in a relationship where the following occur: I choose not to answer Telehealth Telehealth Telehealth Platform: D[employer] Location of provider rendering services: practice address Location of patient: address on file Patient Identification confirmed using: Name, : Yes Telehealth method: voice only Patient verbally consented to treatment: Yes Patient verbally consented to billing insurance company: Yes Patient informed of any privacy concerns related to visit: Yes Minutes spent on Phone/Video with Pt.: 6 Results Reviewed Results Reviewed: [address] [address] Cardiology Report Signed Patient: Dominique Troy MR#: [id number] : 1990 Acct:[id number] Age/Sex: 34 / F ADM Date: 09/13/24 Loc: [facility] Attending Dr: Leticia BECERRIL Ordering Physician: Leticia Brady Date of Service: 09/13/24 Procedure(s): CA echo transthoracic complete Accession Number(s): cc: Leticia Brady~ Transthoracic Echocardiogram Patient (Last, First, Middle): Dominique Troy, Gender: Female Date of : 1990 Age: 34 Procedure Date: 09/13/2024 Procedure Type: Transthoracic Echocardiogram Location: OP Height: 170.18 cm Weight: 54.43 kg BSA: 1.63 m2 Heart Rate: bpm BP: 110 / 76 mmHg Platform Supervisor: TO Referring MD: Leticia BECERRIL Vessel Slag Worker: Braxton Oneal MD Symptoms: Z87.898 - Personal history of other specified conditions Study Quality: Adequate ECG Rhythm: Sinus Conclusions: - Normal study Findings Left Ventricle Normal left ventricular size, thickness, and systolic function. The visually estimated ejection fraction is between 55-60%. Diastolic function is normal for age. Right Ventricle Normal right ventricular cavity size and systolic function. Atria Both atria are normal in size. There is no evidence of interatrial shunt. Aortic Valve Normal aortic valve structure and function. There is no aortic valve stenosis. There is no aortic valve regurgitation. Mitral Valve Normal mitral valve structure and function. There is trace mitral valve regurgitation. There is no mitral valve stenosis. Pulmonic Valve The pulmonic valve is likely normal. There is trace pulmonic valve regurgitation. Tricuspid Valve Normal tricuspid valve structure. There is trace tricuspid valve regurgitation. The right ventricular systolic pressure is normal. The right ventricular systolic pressure is 10 mmHg. Normal right atrial pressure. There is no evidence of pulmonary hypertension. Great Vessels All visible segments of the aorta are normal in size. There is no dilatation of the ascending aorta measuring 2.80 cm. The visualized portions of the pulmonary artery and branches are normal. Venous The inferior vena cava is normal in size and collapses greater than 50% with inspiration. Pericardium/Pleural There is no evidence of pericardial effusion. Prior Study Comparison No prior study available for comparison. Measurements 2D Linear Measurements IVSd: 0.96 0.6-0.9/0.6-1.0 cm LVIDd: 4.16 3.9-5.3/4.2-5.9 cm LVIDd Index: 2.55 2.4-3.2/2.2-3.1 cm/m2 LVIDs: 2.86 2.0-3.6 cm LVPWd: 0.64 0.7-1.1 cm LA Diam: 3.20 2.7-3.8/3.0-4.0 cm LAIDs Index: 1.96 1.5-2.3 cm/m2 LV Mass: 123.46 67-162/88-224 g LV Mass Index: 75.74 43-95/49-115 g/m2 LVOT Diam: 2.30 3.0+(-)1.3 cm 2D Systolic Function EF 4C: 54.70 >55% EF 2C: 57.20 >55% EF BiP: 56.50 >55% Mitral Valve MV Pk E: 0.45 MV PK A: 0.27 MV Decel Time: 236.00 E/A: 1.70 E'Lateral: 16.30 E'Medial: 10.60 E/E' Med: 4.20 E/E' Lat: 2.80 PHT: 69.00 MVA PHT: 3.19 Decel [place]: 1.90 Aortic Valve AoV Pk Arnold: 1.21 AoV Mn Arnold: 0.84 AoV VTI: 0.26 AoV Pk Grad: 6.00 Aov Mn Grad: 3.00 POLI Cont.VTI: 3.12 LVOT LVOT Pk Arnold: 0.96 LVOT Mn Arnold: 0.59 LVOT VTI: 0.19 LVOT Pk Grad: 4.00 LVOT Mn Grad: 2.00 LVOT Diam: 2.30 LVOT Area: 4.15 Diastolic Function MV Pk E: 0.45 MV Pk A: 0.27 E/A: 1.70 E'Medial: 10.60 E/E' Med: 4.20 E' Laterial: 16.30 E/E' Lat: 2.80 Right Ventricle TAPSE (mm): 19.20 TVS' Arnold: 11.40 Tricuspid Valve TR Pk Arnold: 1.30 TR Pk Grad: 7.00 RA Press: 3.00 RVSP: 10.00 Great Vessels Aorta Sinus of Valsalva: 3.03 2.0-3.5 cm Ao Asc: 2.80 2.1-3.4 cm Updated in Other Vendor System with Status of Final Braxton Oneal MD electronically signed on 09/14/2024 8:37:03 AM with status of Final Dictated By: Braxton Oneal MD Signed By: <Electronically signed by Braxton Oneal MD in OV> 09/14/24 0836 DD/ 1009 TD/TT: Broaching Machine Set Up Operator: Coding Level of Care Code Tele Est Pt Level 2 (75555) Complex EM visit Add On G2211 Diagnoses Hepatitis C virus infection without hepatic coma, unspecified chronicity B19.20 Viral hepatitis chronicity: unspecified Hepatic coma status: without hepatic coma Family history of cardiomyopathy Z82.49 Hx of intravenous drug use in remission Z87.898 Assessment & Plan Assessment & Plan (1) Hepatitis C: Code(s): B19.20 - Unspecified viral hepatitis C without hepatic coma Category: Medical Qualifiers: Viral hepatitis chronicity: unspecified Hepatic coma status: without hepatic coma Qualified Code(s): B19.20 - Unspecified viral hepatitis C without hepatic coma (2) Family history of cardiomyopathy: Comment: mom Code(s): Z82.49 - Family history of ischemic heart disease and other diseases of the circulatory system Category: Medical (3) Hx of intravenous drug use in remission: Code(s): Z87.898 - Personal history of other specified conditions Category: Social Hx Plan .
== END 2024-09-19 17:05 | disposition home or self-care (01) ==
LOC: HO.HMCFM 15:19
PROVIDERS: PCP Nurse Practitioner Family; Visit Provider Nurse Practitioner Family
DX: B19.20 Unspecified viral hepatitis C without hepatic coma (principal); Z82.49 Family history of ischemic heart disease and other diseases of the circulatory system; Z87.898 Personal history of other specified conditions